=== PATIENT | female | born 1965 | race Caucasian/White ===

== ENCOUNTER → 2016-08-10 | Outpatient (CLI) | payer OTHER | END | disposition home or self-care (01) | LOC: C.LABMFLN 08:55 | PROVIDERS: ATTEND Family Medicine | DX: M81.0 Age-related osteoporosis without current pathological fracture (principal) ==

== ENCOUNTER → 2017-07-13 | Outpatient (CLI) | payer OTHER ==
[~2017-07-13] MED LIST: ALBUAER INH; ALEN70TA4 PO; ASPI81TA28 PO; ATOR-22 PO; CALCTAB5 PO; CLON0.5T3 PO; CYCL10TA6 PO; ERGO500037 PO; FLUT115A INH; HYDR-3419 PO; LISI10TA PO; METF500T5 PO; MULT-506 PO
[2017-07-13 18:03] LABS: BASO % 0.5 %; BASO ABS # 0.03 K/uL (0-0.2); COMPLETE YES; EOS % 0.5 %; HEMATOCRIT 37.4 % (37-47); LYMPH % 38.3 %; LYMPH ABS # 2.22 K/uL (1.2-3.4); MEAN CELL VOLUME 91.7 fL (80-100); MEAN CORPUSCULAR HEMOGLOBIN 30.1 pg (25-34); MEAN CORPUSCULAR HGB CONC 32.9 g/dl (32-36); MEAN PLATELET VOLUME 8.9 fL (7.4-10.4); MONO % 10.5 %; NEUT % 50.2 %; PLATELET COUNT 294 K/uL (130-400); RED BLOOD COUNT 4.08 M/uL (4.2-5.4); WHITE BLOOD COUNT 5.79 K/uL (4.8-10.8)
[2017-07-13 18:18] LABS: MANUAL MICROSCOPIC REQUIRED? NO; REVIEW REQ? NO; URINE APPEARANCE CLEAR (CLEAR); URINE BILIRUBIN NEG (NEG); URINE COLOR YELLOW; URINE EPITHELIAL CELL AUTO >30 /lpf (0-5); URINE NITRITE NEG (NEG); URINE PH 6.5 (4.5-7.5); UROBILINOGEN NEG (NEG)
== END | disposition home or self-care (01) ==
LOC: C.LABMFLN 14:11
PROVIDERS: ATTEND Orthopaedic Surgery Orthopaedic Surgery of the Spine
DX: M54.5 Low back pain (principal)

== ENCOUNTER 2017-08-18 08:52 | Inpatient (IN) | payer OTHER ==
--- NOTE | 2017-06-17 11:46 | PAT Medication Instructions ---
Service Date Jun 17, 2017. Current Home Medication List Albuterol Sulfate (Proventil Hfa), 2 PUFF INH QID Alendronate Sodium (Fosamax), 70 MG PO WK Aspirin (Aspirin Ec), 81 MG PO QAM Atorvastatin (Lipitor), 20 MG PO QAM Calcium Carbonate (Caltrate 600), 1 TAB PO QAM Clonazepam (Klonopin), 0.5 MG PO HS Cyclobenzaprine Hcl (Flexeril), 1 TAB PO HS PRN for Muscle Spasms Ergocalciferol (Vitamin D 11341 Unit), 50,000 UNIT PO 2xmonth Fluticasone-Salmeterol 115/21 Mcg (Advair Hfa 115/21 Mcg), 2 PUFF INH BID Hydrocodon/Acetaminophen 5MG/300MG (Vicodin (5MG/300MG)), 1 TAB PO Q4H PRN for Pain Lisinopril (Prinivil), 10 MG PO QAM Metformin Hcl Er (Glucophage Er), 500 MG PO QAM Multivitamin (Multivitamin), 1 TAB PO QAM Medication Instructions For Your Scheduled Surgery - Hold the following medications 48 hours prior to surgery: Metformin Hcl Er (Glucophage Er), 500 MG PO QAM - Hold the following medications the morning of surgery: Multivitamin (Multivitamin), 1 TAB PO QAM Lisinopril (Prinivil), 10 MG PO QAM Calcium Carbonate (Caltrate 600), 1 TAB PO QAM Ergocalciferol (Vitamin D 61978 Unit), 50,000 UNIT PO 2xmonth - Take the following medications the morning of surgery with a sip of water: Aspirin (Aspirin Ec), 81 MG PO QAM Fluticasone-Salmeterol 115/21 Mcg (Advair Hfa 115/21 Mcg), 2 PUFF INH BID Hydrocodon/Acetaminophen 5MG/300MG (Vicodin (5MG/300MG)), 1 TAB PO Q4H PRN for Pain (can take if needed, up to four hours before surgery) Atorvastatin (Lipitor), 20 MG PO QAM Alendronate Sodium (Fosamax), 70 MG PO WK Albuterol Sulfate (Proventil Hfa), 2 PUFF INH QID (if needed, and bring with you to the hospital) - Take the following medications as scheduled the night before surgery: Fluticasone-Salmeterol 115/21 Mcg (Advair Hfa 115/21 Mcg), 2 PUFF INH BID Clonazepam (Klonopin), 0.5 MG PO HS Cyclobenzaprine Hcl (Flexeril), 1 TAB PO HS PRN for Muscle Spasms Albuterol Sulfate (Proventil Hfa), 2 PUFF INH QID (if needed) Hydrocodon/Acetaminophen 5MG/300MG (Vicodin (5MG/300MG)), 1 TAB PO Q4H PRN for Pain (if needed) If you have any questions please call us at [phone] or [phone] or [phone]
[2017-06-17 12:46] LABS: BASO % 0.6 %; BASO ABS # 0.03 K/uL (0-0.2); EOS % 0.8 %; EOS ABS # 0.04 K/uL (0-0.5); HEMATOCRIT 42.2 % (37-47); HEMOGLOBIN 13.5 g/dL (12.0-16.0); IG# 0.01 K/uL (0.00-0.02); LYMPH % 36.3 %; LYMPH ABS # 1.86 K/uL (1.2-3.4); MEAN CELL VOLUME 90.6 fL (80-100); MEAN PLATELET VOLUME 8.6 fL (7.4-10.4); MONO % 7.8 %; NEUT % 54.3 %; NEUT ABS # 2.78 K/uL (1.4-6.5); PLATELET COUNT 382 K/uL (130-400); RED CELL DISTRIBUTION WIDTH CV 15.2 % (11.5-14.5); RED CELL DISTRIBUTION WIDTH SD 50.3 fL (36.4-46.3); WHITE BLOOD COUNT 5.12 K/uL (4.8-10.8)
[2017-06-17 12:55] LABS: CALCIUM 9.4 mg/dl (8.5-10.1); CREATININE 0.71 mg/dl (0.60-1.20); POTASSIUM 4.2 mmol/L (3.5-5.1)
[2017-08-18] VITALS (9 sets, daily range): BP systolic 91–129; BP diastolic 61–83; PULSE 73–105; TEMP 36.3–37.1; O2SAT 95–100; Ht 172.7 cm; Wt 59.9 kg
[~2017-08-18] VITALS: Ht 172.7 cm; Wt 59.9 kg
[~2017-08-18 08:52] MED LIST changes: +CEFAZOLIN 1000MG IV PUSH 5 ML IV SCH; +LACTATED RINGER'S 1000ML 1,000 ML IV SCH
[2017-08-18] MEDS ORDERED: MIDAZOLAM HCL 1 MG/ML 2ML VIAL ONE (10:22)
[2017-08-18] MEDS ORDERED: PROPOFOL IV EMULSION 10 MG/ML 20 ML VIAL IV ONE (10:22)
[2017-08-18] MEDS ORDERED: ONDANSETRON INJ 2 MG/ML 2 ML VIAL ONE (10:22)
[2017-08-18] MEDS ORDERED: LIDOCAINE HCL 2% 2 ML VIAL (20MG/ML) ONE (10:22)
[2017-08-18] MEDS ORDERED: DEXAMETHASONE SOD INJ 4 MG/ML VIAL ONE (10:22)
[2017-08-18] MEDS ORDERED: NEOSTIGMINE METHYLSULFATE 1 MG/ML 10ML VIAL ONE (10:22)
[2017-08-18] MEDS ORDERED: GLYCOPYRROLATE INJ 0.2 MG/ML VIAL ONE (10:22)
[2017-08-18] MEDS ORDERED: FENTANYL CITRATE INJ 50 MCG/1 ML 2 ML VIAL ONE ×2 (10:22)
--- NOTE | 2017-08-18 10:30 | History & Physical Bridge Note ---
H&P Re-Evaluation Bridge Note: I have examined the patient, reviewed the History & Physical and in the interval since the performance of the History & Physical I have noted the following changes of clinical significance: No changes noted
--- NOTE | 2017-08-18 10:31 | History and Physical ---
History & Physical Date Aug 18, 2017. Chief Complaint Back and leg pain History of Present Illness The patient is a 52 year old female with complaints of back and leg pain Additional History Hepatic Disease: No Endocrine Disorder: No Kidney Disease: No Hypertension: Yes Heart Disease: No Bleeding Tendencies: No Infectious Diseases: No Allergies Coded Allergies: Ketorolac (Verified Allergy, Unknown, throat swells and hives, 08/18/17) Home Medications Scheduled Albuterol Sulfate (Proventil Hfa), 2 PUFF INH QID Alendronate Sodium (Fosamax), 70 MG PO WK Aspirin (Aspirin Ec), 81 MG PO QAM Atorvastatin (Lipitor), 20 MG PO QAM Calcium Carbonate (Caltrate 600), 1 TAB PO QAM Clonazepam (Klonopin), 0.5 MG PO HS Ergocalciferol (Vitamin D 72458 Unit), 50,000 UNIT PO 2xmonth Fluticasone-Salmeterol 115/21 Mcg (Advair Hfa 115/21 Mcg), 2 PUFF INH BID Lisinopril (Prinivil), 5 MG PO QAM Metformin Hcl Er (Glucophage Er), 500 MG PO QAM Multivitamin (Multivitamin), 1 TAB PO QAM Scheduled PRN Cyclobenzaprine Hcl (Flexeril), 1 TAB PO HS PRN for Muscle Spasms Hydrocodon/Acetaminophen 5MG/300MG (Vicodin (5MG/300MG)), 1 TAB PO Q4H PRN for Pain Physical Examination Skin: warm/dry, no rash Eyes: normal inspection, EOMI, sclerae normal ENT: normal ENT inspection, pharynx normal Head: normocephalic, atraumatic Neck: supple, no adenopathy, trachea midline Respiratory/Chest: lungs clear, normal breath sounds, no respiratory distress Cardiovascular: regular rate, rhythm, no edema, no murmur Abdomen / GI: normal bowel sounds, non tender Back: normal inspection Extremities: normal inspection, normal range of motion Neurologic/Psych: no motor/sensory deficits, alert, normal reflexes, oriented x 3 Diagnosis Lumbar spinal stenosis Plan of Treatment Removal of hardware L5-S1 L4 5 decompression fusion possible L3 4
[2017-08-18] MEDS ORDERED: BUPIVACAINE/EPINEPHRINE 0.25% 1:200,000 30 ML VIAL ONE (10:44)
[2017-08-18] MEDS ORDERED: BACITRACIN 50000 UNIT VIAL ONE (10:44)
[2017-08-18] MEDS ORDERED: HYDROmorphone INJ 2 MG/ML SYR/VIAL ONE (11:31)
[2017-08-18] MEDS ORDERED: PHENYLEPHRINE 100MCG/ML 5ML SYR ONE (11:44)
[2017-08-18] MEDS ORDERED: ONDANSETRON INJ 2 MG/ML 2 ML VIAL IV PRN (12:00)
[2017-08-18] MEDS ORDERED: ATROPINE SULFATE 0.1 MG/ML 5ML SYR IV PRN (12:00)
[2017-08-18] MEDS ORDERED: EpHEDrine SULFATE INJ 50 MG/ML AMP IV PRN (12:00)
[2017-08-18] MEDS ORDERED: FLOSEAL HEMOSTATIC MATRIX 10ML TOP ONE (12:02)
[2017-08-18] MEDS ORDERED: SODIUM CHLORIDE 0.9% 1000ML 1,000 ML IV SCH (12:13)
--- NOTE | 2017-08-18 12:13 | [facility] Operative Report ---
Operative Report Operative Date Aug 18, 2017. Pre-Operative Diagnosis Lumbar Spinal Stenosis Post-Operative Diagnosis Lumbar Spinal Stenosis Procedure(s) Performed #1 removal of posterior instrumentation L5-S1. #2 expiration of fusion L5-S1. #3 lumbar decompression medial facetectomies foraminotomies L4 5. #4 posterior spinal fusion L4 5. #5 placement posterior instrumentation L4 5. #6 interbody fusion L4 5. #7 placement peek cage 12 x 22 mm L4 5. #8 placement of locally harvested morcellized autograft in the posterior lateral gutters. #9 placement infuse collagen sponge commode Master graft the posterior gutters and ostial amp in the interbody space. Surgeon Dr. Mitchell Weinberg Radiologic Technologist Surgeon(s) Allyssa Bee PA-C Estimated Blood Loss 70 ml Findings Severe spinal stenosis Specimens A: Explanted Hardware Description of Procedure Patient was met with preoperatively case discussed all questions addressed. After informed consent obtained patient was taken to the operative suite underwent intubation placed in a prone position on the Som table on top Jordy frame. All bony prominences were well-padded eyes inspected to ensure there is no external pressure placed upon them. This point the lumbar spine was prepped and draped in normal sterile fashion. Sharp dissection with the assistance of Bovie cautery was performed onto an exposing the lamina and transverse processes of L4 and instrumentation L5-S1 level. Then proceeded remove the hardware L5-S1 Fusion mass noting it to be intact. Then performed a complete laminectomy of L4 addressing severe lateral recessed foraminal disease particularly on the left. After this complete pedicle screws were placed in L4 and L5 bilaterally with assistance of fluoroscopy and the probably size lois placed. Through a trans-foraminal approach on the left complete discectomy was performed and plate created to subcortical bleeding bone and a 12 x 22 mm peek cage filled with ostial amp tapped in position. The rods were then compressed locked and final position bilaterally. The transverse processes of L4 and 5 burred to subcortical bleeding bone. Infuse collagen sponge mask graft locally harvested morcellized autograft was placed and posterior gutters. 15 round WILLIAM drain inserted. Incision was then closed with 1 Vicryl in the fascia 2-0 Vicryl subcutaneous cutaneously 4 Monocryl for final skin closure Steri-Strips sterile dressings placed. Patient we can take PACU stable condition. Please note Gladys Ruffin was present at the entire procedure involved in patient positioning complex portions of the surgery and final skin closure. I attest to the content of the Intraoperative Record and any orders documented therein. Any exceptions are noted below.
[2017-08-18] MEDS ORDERED: ALUMINUM/MAGNESIUM SUSP 30 ML UDC PO PRN (12:15)
[2017-08-18] MEDS ORDERED: DO NOT ADMINISTER FLU VACCINE PRN (12:15)
[2017-08-18] MEDS ORDERED: BISACODYL 10 MG SUPP PR PRN (12:15)
[2017-08-18] MEDS ORDERED: METOCLOPRAMIDE HCL INJ 5 MG/ML 2 ML VIAL IV PRN (12:15)
[2017-08-18] MEDS ORDERED: LORAZEPAM INJ 0.5 MG in SYRINGE 0 ML IV PRN (12:15)
[2017-08-18] MEDS ORDERED: PROMETHAZINE HCL INJ 12.5 MG in SODIUM CHLORIDE 0.9% 50ML 50 ML IV PRN (12:15)
[2017-08-18] MEDS ORDERED: NALOXONE HCL 0.4 MG/1 ML VIAL/CARP IV PRN ×2 (12:15)
[2017-08-18] MEDS ORDERED: hydrOXYzine HCL 25 MG TAB PO PRN (12:15)
[2017-08-18] MEDS ORDERED: FAMOTIDINE 20 MG TAB PO PRN (12:15)
[2017-08-18] MEDS ORDERED: CEFAZOLIN IV 1,000 MG in DEXTROSE 5% 50ML 50 ML IV SCH (12:15)
[2017-08-18] MEDS ORDERED: DO NOT ADMINISTER PNEUMOCOCCAL VACCINE PRN (12:15)
[2017-08-18] MEDS ORDERED: ACETAMINOPHEN IV 100 ML IV PRN (12:15)
[2017-08-18] MEDS ORDERED: MAGNESIUM HYDROXIDE SUSP 30 ML UDC PO PRN (12:15)
[2017-08-18] MEDS ORDERED: SOD PHOSPHATE/SOD BIPHOSPHATE ENEMA 132 ML BTL PR PRN (12:15)
[2017-08-18] MEDS ORDERED: CYCLOBENZAPRINE HCL 10 MG TAB PO PRN (12:15)
[2017-08-18] MEDS ORDERED: ACETAMINOPHEN 500 MG TAB PO PRN (12:15)
[2017-08-18] MEDS ORDERED: ROCURONIUM BROMIDE 10 MG/ML 5 ML VIAL IV ONE (12:16)
[2017-08-18] MEDS ORDERED: PHARMACY GLYCEMIC MGMT CONSULT PRN (12:24)
[2017-08-18] MEDS ORDERED: HYDROmorphone HCL 0.5MG/ML 50 ML CASSETTE ONE (12:32)
[2017-08-18] MEDS: FENTANYL CITRATE INJ 50 MCG/1 ML 2 ML VIAL IV PRN ×4 (12:35→12:50)
[2017-08-18] MEDS: MoRPHine SULFATE 10 MG/ML CARP/VIAL IV PRN ×5 (13:05→13:25)
[2017-08-18] MEDS ORDERED: NURSING VERBAL MED ORDER ONE ×3 (13:15→22:15)
--- NOTE | 2017-08-18 13:33 | Anesthesiology Progress Note ---
Anesthesia Post Op Note Date & Time Aug 18, 2017 at 13:33 Vital Signs Vital Signs Past 12 Hours Date Time Temp Pulse Resp B/P (MAP) Pulse Ox O2 Delivery O2 Flow Rate FiO2 08/18/17 13:20 94 18 102/69 99 Nasal Cannula 4 08/18/17 13:10 69 18 105/70 100 Nasal Cannula 4 08/18/17 13:00 74 18 105/69 100 Oxymask 10 08/18/17 12:50 64 18 90/60 100 Oxymask 10 08/18/17 12:40 87 18 119/80 100 Oxymask 10 08/18/17 12:31 36.2 76 18 122/66 100 Oxymask 10 08/18/17 09:20 36.6 88 18 129/83 99 Room Air Notes Mental Status: alert / awake / arousable, participated in evaluation Pt Amnestic to Procedure: Yes Nausea / Vomiting: adequately controlled Pain: adequately controlled Airway Patency, RR, SpO2: stable & adequate BP & HR: stable & adequate Hydration State: stable & adequate Anesthetic Complications: no major complications apparent
[2017-08-18] MEDS: HYDROmorphone HCL 0.5MG/ML 50 ML CASSETTE IV PRN ×3 (14:00→23:00)
--- NOTE | 2017-08-18 14:15 | Pharmacy Progress Note ---
Glycemic Control Intl Consult Date of Service Aug 18, 2017. Scope Glycemic Pharmacist consulted by Dr Weinberg on 08/18/17 for glycemic control and to write orders per [facility] inpatient glycemic control protocol Objective Weight (Kilograms): 59.90 Accuchecks BSG (last 24hrs): Test 08/18/17 12:46 Bedside Glucose 135 mg/dl (70-90) Recent Pertinent Medications Outpatient Anti-diabetic Regimen: * Metformin * A1c = 5.9 % 07/17/16 Risk Factors for Insulin Resistance: * Steroids * Recent Surgery Assessment & Plan ASSESSMENT: * 52 yo diabetic F s/p lumbar surgery, POD#0 * Most recent A1c from over a year ago indicative of good glycemic control - will order a current A1c * Pt received Dexamethasone 8 mg IV @1030 which should drive BSGs above goal range * To combat steroid-induced hyperglycemia, will initiate one time dose of Lantus in addition to wt based Novolog PLAN FOR INPATIENT GLYCEMIC CONTROL: * Hold outpatient oral diabetes medications * Basal insulin with LANTUS 20 units SQ X 1 with dinner * Correctional Insulin with NOVOLOG per scale ACHS + 0200 check tonight only for tight control immediately post-op * Goal Range: Low 110 mg/dL - High 140 mg/dL * Correction Factor: 25 mg/dL/unit * Nutritional / Prandial insulin per carb ratio of 1 unit per 9 grams CHO consumed * Please note that the plan above was derived based on current level of insulin resistance and hospital stress. These recommendations are appropriate for inpatient admission only. Plan of care upon discharge will need to be reassessed to avoid potential outpatient hypo/hyperglycemia. Thank you.
--- NOTE | 2017-08-18 14:19 | DIAGNOSTIC IMAGING REPORT ---
INTRAOPERATIVE LUMBAR SPINE 2 VIEWS CLINICAL HISTORY: L3-L5 DECOMPRESSION/FUSION COMPARISON STUDY: Outside conventional radiographic study dated 04/26/2017 FINDINGS: 12 seconds of fluoroscopic time was utilized. 2 intraoperative fluoroscopic spot images are provided for interpretation. There are postsurgical changes of a L5-S1 discectomy and interbody fusion. There are postsurgical changes of a L4-5 discectomy and interbody fusion with posterior pedicle screw fixation. IMPRESSION: Intraoperative radiographs as described above. Electronically signed by: Leodan De Guzman M.D. 08/18/2017 2:17 PM Dictated Date/Time: 08/18/2017 2:16 PM
[2017-08-18] MEDS ORDERED: RXC5 PO (14:31)
--- NOTE | 2017-08-18 14:32 | Discharge Instructions ---
Discharge Instructions Date of Service Aug 18, 2017. Admission Reason for Admission: Lumbar Spinal Stenosis Discharge Discharge Diagnosis / Problem: lumbar stenosis Discharge Goals Goal(s): Improve function Activity Recommendations Activity Limitations: per Instructions/Follow-up section . Instructions / Follow-Up Instructions / Follow-Up ACTIVITY RECOMMENDATIONS: SELF CARE INSTRUCTIONS AFTER THORACIC/LUMBAR FUSIONS 1. You may walk to your tolerance. It is good exercise for your legs and back. Expect some back and intermittent leg aches and pains. 2. You may perform "counter-top" level activities (make a sandwich, john with a project, etc.). 3. No bending or lifting of more than 10 pounds or back twisting of any nature (roll like a log when turning in bed). 4. You may ride in a car for 20-30 minutes at a time. No driving until after your first visit with your doctor. 5. Frequent changes of position and restricting sitting to 30 minutes at a time will help limit the amount of back spasms and stiffness you may experience. 6. You may discontinue the use of ambulatory aids (cane, crutches, etc.) once your strength and confidence allow. 7. You may supply coordinator the shower and let water strike your incision when you arrive home at least once daily. Do not take a tub bath, sit in a hot tub or go into a swimming pool until after your first recheck in the office. SPECIAL CARE INSTRUCTIONS: VERY IMPORTANT TO READ AND REVIEW A. Your surgical incision has been closed with a cosmetic suture under the skin that will dissolve in about 6 weeks. In 14 days, you can use a pair of clean scissors and cut the suture that is left outside of the skin at the ends of your incision. 1. The small skin tapes can be removed 7 days after surgery if they have not fallen off by that point. 2. You may keep the wound open to air as much as possible to promote healing after post-op day number 5 unless told otherwise by your doctor. 3. If you think the wound looks like it is becoming infected (redness or worsening drainage) and/or you are experiencing fever, chill or worsening back pain and muscle spasms, contact the office so that we may evaluate you as soon as possible. B. Complications are uncommon, but please contact us if you have any signs or symptoms of: 1. wound infection (fever higher than 102.5 degrees F, redness, separation of wound, drainage, or increasing pain from the incision) 2. blood clots in legs (pain, swelling, redness and warmth in legs) 3. urinary tract infection (fever higher than 102.5 degrees F, burning upon urination or increased frequency of urination) 4. nerve problems (inability to walk on your toes or heels, numbness, loss of bowel or bladder control) 5. any other symptoms that concern you C. Please call the office at if you have any concerns or questions about your operation or recovery. D. No smoking! Smoking drastically decreases the chance of a solid fusion. E. Do not take any anti-inflammatory medications (Indocin, Advil, Motrin, Aspirin, Naprosyn, etc.) as these may inhibit the chance of a solid fusion. Tylenol is okay to take for pain. MANAGING PAIN AFTER SPINAL SURGERY 1. Narcotic medication is intended for short-term use and will be provided for surgical pain. Surgical pain usually lasts for a period of 4-6 weeks. Narcotic medication includes Percocet, Vicodin, Darvocet, Tylenol #3 or Lortab. 2. Longer-term pain is more appropriately treated with non-narcotic medication such as Tylenol ES. 3. Muscle spasm is not appropriately treated with narcotics. Muscle relaxers such as Soma, Flexeril or Skelaxin can be used along with Tylenol ES. 4. Remember that we all live with some "aches and pains". This is not unusual or uncommon after an injury or as we get older. a. Back pain is expected and may include muscle spasms for 4 to 6 weeks after surgery. The pain should gradually improve. If the pain worsens for no apparent reason, please contact the office. b. Intermittent leg pain may also be experienced and should not be concerned about unless it worsens for no apparent reason. If so, please contact the office. 5. We will provide appropriate medication within the normal guidelines of their prescribed use. We will also be very cautious and aware of potential abuse and extended duration of patients' medication needs. a. Pain medications are for your comfort and to assist with sleep and rest so that the tissue can heal. They are not provided in order to return to normal activity and should not be used through the day. To do so or worsening pain at night can result from ongoing tissue damage and development of tolerance to the prescribed medicine. 6. Please allow 2-3 days to process refills. Prescriptions will not be mailed but must be picked up at the office. FOLLOW UP VISIT: Keep your scheduled follow-up appointment. Any questions, please call the office at . Current Hospital Diet Patient's current hospital diet: Regular Diet Discharge Diet Recommended Diet: Regular Diet Procedures Procedures Performed: #1 removal of posterior instrumentation L5-S1. #2 expiration of fusion L5-S1. #3 lumbar decompression medial facetectomies foraminotomies L4 5. #4 posterior spinal fusion L4 5. #5 placement posterior instrumentation L4 5. #6 interbody fusion L4 5. #7 placement peek cage 12 x 22 mm L4 5. #8 placement of locally harvested morcellized autograft in the posterior lateral gutters. #9 placement infuse collagen sponge commode Master graft the posterior gutters and ostial amp in the interbody space. Pending Studies Studies pending at discharge: no Medical Emergencies . Who to Call and When: Medical Emergencies: If at any time you feel your situation is an emergency, please call 911 immediately. . Non-Emergent Contact Non-Emergency issues call your: Primary Care Provider . "Provider Documentation" section prepared by Abraham Weinberg. . VTE Core Measure Inpt VTE Proph given/why not?: Yonas Cast, SCD's
[2017-08-18] MEDS ORDERED: GLUCOSE 10 TABS/TUBE PO PRN (14:45)
[2017-08-18] MEDS ORDERED: GLUCOSE 40% GEL 15 GM TUBE PO PRN (14:45)
[2017-08-18] MEDS ORDERED: GLUCAGON FOR INJ 1 MG VIAL SQ PRN (14:45)
[2017-08-18] MEDS ORDERED: DEXTROSE 50% 50 ML SYR IV PRN (14:45)
[2017-08-18] MEDS: ALBUTEROL HFA 8 GM INHALER INH SCH ×3 (15:48→20:34)
[2017-08-18] MEDS: NICOTINE 21 MG/24 HR TDSY EXT SCH (15:48)
[2017-08-18] MEDS: SODIUM CHLORIDE 0.9% 1000ML 1,000 ML IV SCH ×2 (16:57→23:57)
[2017-08-18] MEDS ORDERED: LANTUS PER UNIT CHARGE SQ SCH ×2 (17:45)
[2017-08-18] MEDS: INSULIN ASPART 100 UNITS/ML 3 ML PEN SC SCH ×2 (18:46→22:02)
[2017-08-18] MEDS: CEFAZOLIN IV 1,000 MG in SYRINGE 0 ML IV SCH (18:47)
[2017-08-18] MEDS: ONDANSETRON INJ 2 MG/ML 2 ML VIAL IV PRN (18:54)
[2017-08-18] MEDS: DOCUSATE SODIUM/SENNA 50/8.6MG TAB PO SCH (20:34)
[2017-08-18] MEDS: CLONAZEPAM 0.5 MG TAB PO SCH (20:34)
[2017-08-19] VITALS (8 sets, daily range): BP systolic 99–119; BP diastolic 60–79; PULSE 91–115; TEMP 36.9–37.5; O2SAT 91–100
[2017-08-19] MEDS ORDERED: INSULIN ASPART 100 UNITS/ML 3 ML PEN SC SCH (02:00)
[2017-08-19] MEDS: CEFAZOLIN IV 1,000 MG in SYRINGE 0 ML IV SCH (03:31)
[2017-08-19] MEDS: LORAZEPAM 0.5 MG TAB PO PRN ×2 (03:39→16:14)
[2017-08-19] MEDS ORDERED: DC PCA ONE (06:00)
[2017-08-19] MEDS: OXYCODONE HCL IR 5 MG TAB (IMMEDIATE RELEASE) PO PRN ×5 (06:14→21:54)
[2017-08-19] MEDS: ONDANSETRON INJ 2 MG/ML 2 ML VIAL IV PRN ×2 (06:18→17:25)
[2017-08-19] MEDS ORDERED: NURSING VERBAL MED ORDER ONE ×2 (06:45→14:30)
[2017-08-19 08:28] LABS: BASO % 0.1 %; BASO ABS # 0.01 K/uL (0-0.2); EOS % 0.1 %; EOS ABS # 0.01 K/uL (0-0.5); HEMATOCRIT 35.3 % (37-47); HEMOGLOBIN 11.7 g/dL (12.0-16.0); IG# 0.08 K/uL (0.00-0.02); LYMPH ABS # 2.11 K/uL (1.2-3.4); MEAN CELL VOLUME 93.6 fL (80-100); MEAN CORPUSCULAR HGB CONC 33.1 g/dl (32-36); MEAN PLATELET VOLUME 8.9 fL (7.4-10.4); MONO % 10.6 %; MONO ABS # 1.86 K/uL (0.11-0.59); NEUT % 76.7 %; NEUT ABS # 13.49 K/uL (1.4-6.5); PLATELET COUNT 257 K/uL (130-400); RED CELL DISTRIBUTION WIDTH SD 48.1 fL (36.4-46.3); WHITE BLOOD COUNT 17.56 K/uL (4.8-10.8)
--- NOTE | 2017-08-19 08:36 | Pharmacy Progress Note ---
Pharmacy Glycemic Short Note 2 Date of Service Aug 19, 2017. OUTPATIENT ANTIDIABETIC REGIMEN: * metformin per med rec (pt states she is no longer taking this) ASSESSMENT: * 52 yo F s/p lumbar surgery, POD#1 * Pt given basal bolus regimen yesterday to combat steroid-induced hyperglycemia * BSGs looked great through the evening and have trended down to Fasting this AM of 89 * Loosen coverage and remove carb ratio this afternoon PLAN FOR INPATIENT GLYCEMIC CONTROL: * Bolus insulin * NovoLog per scale ACHS or Q6hrs while NPO * Goal Range: Low 110 mg/dL - High 140 mg/dL * Correction Factor: 40 mg/dL/unit * Nutritional / Prandial insulin per carb ratio of 1 unit per 15 grams CHO consumed PLAN FOR DISCHARGE: * Pt is not taking metformin - A1c = 5.9% - continue lifestyle modifications
[2017-08-19] MEDS: ASPIRIN 81 MG ECTAB PO SCH (08:45)
[2017-08-19] MEDS: ALBUTEROL HFA 8 GM INHALER INH SCH ×4 (08:45→20:03)
[2017-08-19] MEDS: ATORVASTATIN 20 MG TAB PO SCH (08:46)
[2017-08-19] MEDS: LISINOPRIL 5 MG TAB PO SCH (08:46)
--- NOTE | 2017-08-19 08:46 | Progress Note ---
Progress Note Date of Service Aug 19, 2017. Progress Note Patient is postop day #1. Left leg symptoms markedly improved. Back pain controlled. Exam she is good strength testing. She appears comfortable. Assessment status post lumbar decompression fusion. Planned this time we'll initiate physical therapy advance her bowel regiment consider discharge home Wednesday or Wednesday.
[2017-08-19] MEDS: NICOTINE 21 MG/24 HR TDSY EXT SCH (08:47)
[2017-08-19 08:52] LABS: CALCIUM 8.9 mg/dl (8.5-10.1); CREATININE 0.65 mg/dl (0.60-1.20)
[2017-08-19] MEDS: INSULIN ASPART 100 UNITS/ML 3 ML PEN SC SCH ×4 (08:53→21:00)
[2017-08-19 08:54] LABS: HEMOGLOBIN A1C 5.9 % (4.5-5.6)
[2017-08-19] MEDS: HYDROmorphone INJ 1 MG/ML SYR IV PRN ×4 (08:58→18:35)
[2017-08-19] MEDS: CYCLOBENZAPRINE HCL 10 MG TAB PO PRN (15:26)
[2017-08-19] MEDS: CLONAZEPAM 0.5 MG TAB PO SCH (20:03)
[2017-08-19] MEDS: DOCUSATE SODIUM/SENNA 50/8.6MG TAB PO SCH (20:03)
[2017-08-19] MEDS ORDERED: ALUMINUM/MAGNESIUM SUSP 30 ML UDC PO STA (21:48)
--- NOTE | 2017-08-19 22:18 | Medical Consult ---
Consultation Date of Consultation: Aug 19, 2017. Attending Physician: Abraham Weinberg D.O. History of Present Illness This is a 52 year old F s/p back surgery. Internal medicine hospitalist consult called when nurse reported that patient was having substernal chest pain. Patient was evaluated by hospitalist at bedside around 9:40 PM. She reports that she was drinking a soda earlier and describes the chest discomfort feeling gassy but the discomfort was left sided and radiated to the back. Patient had reported that the sensation has resolved. An EKG was performed showing normal sinus rhythm around 96 beats per minutes. There did not appear to be morphologies of ST elevation. Patient also had troponin ordered. Have also ordered troponin to be drawn with morning labs. Patient's nurse was instructed to give Maalox and to notify hospitalist if patient has further symptoms. Social History Smoking Status: Current Every Day Smoker Allergies Coded Allergies: Ketorolac (Verified Allergy, Unknown, throat swells and hives, 08/18/17) Current Inpatient Medications Current Inpatient Medications Medications (Trade) Dose Ordered Sig/Isak Route Start Time Stop Time Status Last Admin Dose Admin Promethazine HCl 12.5 mg/Sodium Chloride 50.5 ml @ 202 mls/hr Q6H PRN IV 08/18/17 12:15 09/17/17 12:14 Ondansetron HCl (Zofran Inj) 4 mg Q6H PRN IV 08/18/17 12:15 09/17/17 12:14 08/19/17 17:25 4 MG Metoclopramide HCl (Reglan Inj) 10 mg Q6H PRN IV 08/18/17 12:15 09/17/17 12:14 Lorazepam (Ativan Tab) 0.5 mg Q8H PRN PO 08/18/17 12:15 09/17/17 12:14 08/19/17 16:14 0.5 MG Lorazepam 0.5 mg/ Syringe 0.25 ml @ 1 mls/min Q8H PRN IV 08/18/17 12:15 09/17/17 12:14 Pneumococcal Polysaccharide Vaccine 1 ea PRN PRN N/A 08/18/17 12:15 09/17/17 12:14 Influenza Virus Vacc Triv Types A&B 1 ea PRN PRN N/A 08/18/17 12:15 09/17/17 12:14 Polyethylene (Miralax Powder Packet) 17 gm Q6 PO 08/20/17 06:00 09/19/17 05:59 Bisacodyl (Dulcolax Supp) 10 mg DAILY PRN [place] 08/18/17 12:15 09/17/17 12:14 Magnesium Hydroxide (Milk Of Magnesia Susp) 30 ml DAILY PRN PO 08/18/17 12:15 09/17/17 12:14 Hydromorphone HCl (Dilaudid Inj) 0.5-1mg prn moder... Q3H PRN IV 08/19/17 06:00 09/02/17 05:59 08/19/17 18:35 1 MG Oxycodone HCl (Roxicodone Immediate Rel Tab) 5-10mg prn moderate to sev... Q4H PRN PO 08/19/17 06:00 09/02/17 05:59 08/19/17 21:54 10 MG Acetaminophen (Tylenol Tab) 1,000 mg Q8H PRN PO 08/18/17 12:15 09/17/17 12:14 Acetaminophen 100 ml @ 400 mls/hr Q8H PRN IV 08/18/17 12:15 09/17/17 12:14 Naloxone HCl (Narcan Inj) 0.1 mg Q5M PRN IV 08/18/17 12:15 09/17/17 12:14 Senna/Docusate Sodium (Senokot S Tab) 2 tab HS PO 08/18/17 21:00 09/17/17 20:59 08/19/17 20:03 2 TAB Sodium Biphosphate/ Sodium Phosphate (Fleet Enema) 132 ml ONE PRN [place] 08/18/17 12:15 09/17/17 12:14 Hydroxyzine HCl (Vistaril Tab) 25 mg Q8H PRN PO 08/18/17 12:15 09/17/17 12:14 Al Hydroxide/Mg Hydroxide (Maalox Susp) 30 ml Q6H PRN PO 08/18/17 12:15 09/17/17 12:14 Famotidine (Pepcid Tab) 20 mg Q12 PRN PO 08/18/17 12:15 09/17/17 12:14 Diphenhydramine HCl (Benadryl Cap) 25 mg Q6H PRN PO 08/18/17 12:15 09/17/17 12:14 Albuterol (Ventolin Hfa Inhaler) 1 puffs QID INH 08/18/17 13:00 09/17/17 12:59 08/19/17 20:03 1 PUFFS Aspirin (Ecotrin Tab) 81 mg QAM PO 08/19/17 09:00 09/18/17 08:59 08/19/17 08:45 81 MG Atorvastatin Calcium (Lipitor Tab) 20 mg QAM PO 08/19/17 09:00 09/18/17 08:59 08/19/17 08:46 20 MG Clonazepam (Klonopin Tab) 0.5 mg HS PO 08/18/17 21:00 09/17/17 20:59 08/19/17 20:03 0.5 MG Lisinopril (Zestril Tab) 5 mg QAM PO 08/19/17 09:00 09/18/17 08:59 08/19/17 08:46 5 MG Miscellaneous Information (Consult Glycemic Management Pharmacy) 1 ea UD PRN N/A 08/18/17 12:24 09/17/17 12:23 Insulin Aspart (novoLOG ASPART) SLIDING SCALE G... ACHS SC 08/18/17 17:15 09/17/17 17:14 08/19/17 08:53 2 UNITS Glucose (Glucose 40% Gel) 15-30 GRAMS 15 GRAMS... UD PRN PO 08/18/17 14:45 09/17/17 14:44 Glucose (Glucose Chew Tab) 4-8 Tablets 4 Tabl... UD PRN PO 08/18/17 14:45 09/17/17 14:44 Dextrose (Dextrose 50% 50ML Syringe) 25-50ML OF 50% DW IV FOR... UD PRN IV 08/18/17 14:45 09/17/17 14:44 Glucagon (Glucagon Inj) 1 mg UD PRN SQ 08/18/17 14:45 09/17/17 14:44 Nicotine (Nicoderm Cq 21MG Patch) 1 patch QAM EXT 08/18/17 16:00 09/17/17 15:59 08/19/17 08:47 1 PATCH Miscellaneous (Remove Nicoderm Patch) 1 ea QAM N/A 08/19/17 09:00 09/18/17 08:59 08/19/17 08:47 1 EA Cyclobenzaprine HCl (Flexeril Tab) 10 mg Q8H PRN PO 08/19/17 14:45 09/18/17 14:44 08/19/17 15:26 10 MG Review of Systems Constitutional: No fever Eyes: No eye pain ENT: No nasal symptoms Respiratory: No cough, No wheezing, No shortness of breath Cardiovascular: + problem reported (chest discomfort like feeling gassy that was left sided chest and radiated to the back) Abdomen: No pain, No nausea, No vomiting Musculoskeletal: No swelling, No calf pain Genitourinary - Female: No dysuria Neurologic: No paralysis, No numbness/tingling Psychiatric: No substance abuse Endocrine: No fatigue Hematologic / Lymphatic: No abnormal bleeding/bruising Physical Exam Date Time Temp Pulse Resp B/P (MAP) Pulse Ox O2 Delivery O2 Flow Rate FiO2 08/19/17 21:14 37.3 94 18 119/75 (90) 100 Room Air 08/19/17 20:01 104 96 Room Air 08/19/17 16:00 Room Air 08/19/17 15:35 104 100 Room Air 08/19/17 15:04 36.9 115 16 115/68 (84) 95 Room Air 08/19/17 13:55 37.0 99 16 117/79 (92) 100 Room Air 08/19/17 07:30 Room Air 08/19/17 06:58 37.5 91 16 107/67 (80) 96 Room Air 08/19/17 03:45 37.5 94 17 99/60 (73) 98 Room Air 08/19/17 00:00 Room Air 08/18/17 22:54 37.1 95 17 101/61 (74) 99 Room Air General Appearance: no apparent distress Head: normocephalic, atraumatic Eyes: normal inspection, EOMI, sclerae normal ENT: normal ENT inspection, hearing grossly normal, pharynx normal Neck: supple, no JVD, trachea midline Respiratory/Chest: chest non-tender, lungs clear, normal breath sounds, no respiratory distress, no accessory muscle use Cardiovascular: regular rate, rhythm, no edema, no JVD, no murmur Abdomen/GI: normal bowel sounds, non tender, soft Back: + pertinent finding (patient has dressing over lower back, patient could not sit up but able to turn to the side for exam) Extremities/Musculoskelatal: normal inspection, no calf tenderness, no pedal edema, non-tender Neurologic/Psych: alert, normal mood/affect, oriented x 3 Skin: normal color, warm/dry, no rash Laboratory Results Last 24 Hours Test 08/19/17 01:58 08/19/17 07:27 08/19/17 08:12 08/19/17 12:02 Bedside Glucose 130 mg/dl 98 mg/dl 109 mg/dl White Blood Count 17.56 K/uL Red Blood Count 3.77 M/uL Hemoglobin 11.7 g/dL Hematocrit 35.3 % Mean Corpuscular Volume 93.6 fL Mean Corpuscular Hemoglobin 31.0 pg Mean Corpuscular Hemoglobin Concent 33.1 g/dl Platelet Count 257 K/uL Mean Platelet Volume 8.9 fL Neutrophils (%) (Auto) 76.7 % Lymphocytes (%) (Auto) 12.0 % Monocytes (%) (Auto) 10.6 % Eosinophils (%) (Auto) 0.1 % Basophils (%) (Auto) 0.1 % Neutrophils # (Auto) 13.49 K/uL Lymphocytes # (Auto) 2.11 K/uL Monocytes # (Auto) 1.86 K/uL Eosinophils # (Auto) 0.01 K/uL Basophils # (Auto) 0.01 K/uL RDW Standard Deviation 48.1 fL RDW Coefficient of Variation 14.0 % Immature Granulocyte % (Auto) 0.5 % Immature Granulocyte # (Auto) 0.08 K/uL Sodium Level 140 mmol/L Potassium Level 4.0 mmol/L Chloride Level 105 mmol/L Carbon Dioxide Level 26 mmol/L Anion Gap 8.0 mmol/L Blood Urea Nitrogen 6 mg/dl Creatinine 0.65 mg/dl Est Creatinine Clear Calc Drug Dose 94.6 ml/min Estimated GFR () 117.5 Estimated GFR (Non- 101.4 BUN/Creatinine Ratio 9.8 Random Glucose 119 mg/dl Estimated Average Glucose 123 mg/dl Hemoglobin A1c 5.9 % Calcium Level 8.9 mg/dl Test 08/19/17 17:11 08/19/17 20:52 08/19/17 21:34 Bedside Glucose 114 mg/dl 117 mg/dl Assessment & Plan This is a 52 year old F s/p back surgery. Internal medicine hospitalist consult called when nurse reported that patient was having substernal chest pain. Patient was evaluated by hospitalist at bedside around 9:40 PM. She reports that she was drinking a soda earlier and describes the chest discomfort feeling gassy but the discomfort was left sided and radiated to the back. Patient had reported that the sensation has resolved. An EKG was performed showing normal sinus rhythm around 96 beats per minutes. There did not appear to be morphologies of ST elevation. Patient also had troponin ordered. Have also ordered troponin to be drawn with morning labs. Patient's nurse was instructed to give Maalox and to notify hospitalist if patient has further symptoms. [facility] Hospitalist will continue to follow the patient The attending physician on 08/20/[address] Mcgee Other health issues Other Cardiovascular: on aspirin and lisinopril no respiratory distress, on albuterol Current smoker DM with HbA1c less than 6, on metformin at home, currently on insulin in the hospital DVT ppx: SCDs
[2017-08-20] MEDS: OXYCODONE HCL IR 5 MG TAB (IMMEDIATE RELEASE) PO PRN ×2 (02:03→07:22)
[2017-08-20] MEDS: HYDROmorphone INJ 1 MG/ML SYR IV PRN ×2 (04:24→09:25)
[2017-08-20] MEDS ORDERED: POLYETHYLENE (MIRALAX) 17 GM PACK PO SCH (06:00)
[2017-08-20 06:20] LABS: BASO % 0.2 %; BASO ABS # 0.02 K/uL (0-0.2); EOS % 0.3 %; EOS ABS # 0.03 K/uL (0-0.5); HEMOGLOBIN 11.7 g/dL (12.0-16.0); IG# 0.02 K/uL (0.00-0.02); LYMPH % 24.4 %; LYMPH ABS # 2.38 K/uL (1.2-3.4); MEAN CELL VOLUME 92.8 fL (80-100); MEAN CORPUSCULAR HGB CONC 33.4 g/dl (32-36); MEAN PLATELET VOLUME 8.7 fL (7.4-10.4); MONO % 15.8 %; MONO ABS # 1.54 K/uL (0.11-0.59); NEUT % 59.1 %; NEUT ABS # 5.75 K/uL (1.4-6.5); PLATELET COUNT 230 K/uL (130-400); RED CELL DISTRIBUTION WIDTH CV 14.3 % (11.5-14.5); RED CELL DISTRIBUTION WIDTH SD 48.5 fL (36.4-46.3); WHITE BLOOD COUNT 9.74 K/uL (4.8-10.8)
[2017-08-20 06:30] VITALS: BP 95/60; PULSE 97; TEMP 37.1; O2SAT 94
[2017-08-20] MEDS ORDERED: NURSING DECISION MEDICATION ORDER SCH (06:30)
[2017-08-20] MEDS: CYCLOBENZAPRINE HCL 10 MG TAB PO PRN (06:31)
[2017-08-20 06:50] LABS: ALBUMIN 2.9 gm/dl (3.4-5.0); ALT/SGPT 16 U/L (12-78); BLOOD UREA NITROGEN 5 mg/dl (7-18); CALCIUM 8.5 mg/dl (8.5-10.1); CARBON DIOXIDE 27 mmol/L (21-32); CREATININE 0.61 mg/dl (0.60-1.20); GLUCOSE 115 mg/dl (70-99); POTASSIUM 3.7 mmol/L (3.5-5.1); SODIUM 137 mmol/L (136-145)
[2017-08-20 06:55] LABS: ALKALINE PHOSPHATASE 61 U/L (45-117); AST/SGOT 21 U/L (15-37); TOTAL PROTEIN 6.4 gm/dl (6.4-8.2)
[2017-08-20] MEDS: INSULIN ASPART 100 UNITS/ML 3 ML PEN SC SCH (07:23)
[2017-08-20] MEDS: NICOTINE 21 MG/24 HR TDSY EXT SCH (07:46)
[2017-08-20] MEDS: ALBUTEROL HFA 8 GM INHALER INH SCH (07:47)
[2017-08-20] MEDS: ATORVASTATIN 20 MG TAB PO SCH (07:48)
[2017-08-20] MEDS: ASPIRIN 81 MG ECTAB PO SCH (07:48)
[2017-08-20] MEDS: LISINOPRIL 5 MG TAB PO SCH (07:48)
[2017-08-20] MEDS ORDERED: NICO21DI4 EXT (09:13)
[2017-08-20 09:42] VITALS: BP 95/60; PULSE 97; TEMP 37.1; O2SAT 94
--- NOTE | 2017-08-20 12:11 | Discharge Summary ---
Orthopedic Discharge Summary Admission Date/Reason Aug 18, 2017 at 10:30 Lumbar Spinal Stenosis. Discharge Date/Disposition Aug 20, 2017 Home Diagnosis Principal Diagnosis: Lumbar spinal stenosis Admission Physical Exam As per Admitting History & Physical. Hospital Course Patient 1 lumbar decompression fusion tolerated as well as taken to the orthopedic floor postop we. Postoperative day #1 she was up and ambulatory she progressed to postoperative day #2. WILLIAM drain decreased properly. This was subsequently discharged home. Discharge orders and instructions found the chart for further review. Discharge Instructions Please refer to the electronic Patient Visit Report (Discharge Instructions) for additional information.
== END 2017-08-20 10:45 | disposition home or self-care (01) | DRG 455 ==
LOC: C.ACU 08:52 → C.3E 10:30 → ENRESERV 12:57
PROVIDERS: ADMIT Orthopaedic Surgery Orthopaedic Surgery of the Spine; ATTEND Orthopaedic Surgery Orthopaedic Surgery of the Spine
PROC: 0QP00JZ Removal of Synthetic Substitute from Lumbar Vertebra, Open Approach (ICD-10-PCS; principal; 2017-08-18 11:15)
PROC: 0SG00AJ Fusion of Lumbar Vertebral Joint with Interbody Fusion Device, Posterior Approach, Anterior Column, Open Approach (ICD-10-PCS; principal; 2017-08-18 11:15)
PROC: 0SG0071 Fusion of Lumbar Vertebral Joint with Autologous Tissue Substitute, Posterior Approach, Posterior Column, Open Approach (ICD-10-PCS; principal; 2017-08-18 11:15)
DX: M48.061 Spinal stenosis, lumbar region without neurogenic claudication (principal); I10 Essential (primary) hypertension; R07.9 Chest pain, unspecified; F17.200 Nicotine dependence, unspecified, uncomplicated; E11.9 Type 2 diabetes mellitus without complications; Z79.84 Long term (current) use of oral hypoglycemic drugs; Z79.82 Long term (current) use of aspirin

== ENCOUNTER 2020-01-08 05:39 | Inpatient (IN) ==
--- NOTE | 2020-01-03 14:47 | Anesthesiology Consultation ---
Date of Service January 03, 2020 Assessment & Plan (1) Encounter for pre-operative examination: Chart Review Chart Review: Acceptable Risk for Surgery and Patient NOT seen in Pre Admission Testing Per nursing assessment 01/03/2020, patient resides in [facility]. No known contact with PUIs or Covid positive people. No current Covid related symptoms. Patient's did have COVID testing on 12/20/2019 secondary to coughing and sneezingCOVID test negative per patient. Seen by PCP 12/18/19= " okay for surgery as long as preop testing is within acceptable limits." Hardware Removal L5-S1, decompression/fusion L4-5 on 08/18/17= Done under GA- Grade 1 view with MAC #3 with ETT #7.0. No noted anesthesia issues History Surgery Operation Date: 01/08/20 12:35 Proposed Procedures p C5-C7 Anterior Cervical Discectomy and Fusion, Spinal Cord Monitoring - Abraham Weinberg, Height/Weight Height: 5 ft 8 in Weight: 72.121 kg Allergies Allergy/AdvReac Type Severity Reaction Status Date / Time ketorolac Allergy Severe throat Verified 01/03/20 13:54 swells and hives Medications Home Medications Medication Instructions Recorded Confirmed Last Taken albuterol sulfate 2 puff INHALATION QID PRN 11/02/19 01/03/20 Unknown aspirin [Aspir-81] 81 mg PO QAM 11/02/19 01/03/20 Unknown atorvastatin [Lipitor] 20 mg PO QAM 11/02/19 01/03/20 Unknown buspirone 20 mg PO BID 11/02/19 01/03/20 Unknown calcium carbonate-vitamin D3 1 tab PO QAM 11/02/19 01/03/20 Unknown [Caltrate 600 plus D] fluticasone propion-salmeterol 2 puff INHALATION BID 11/02/19 01/03/20 Unknown [Advair HFA] hydrocodone-acetaminophen 1 tab PO Q4H PRN 11/02/19 01/03/20 Unknown lisinopril 5 mg PO QAM 11/02/19 01/03/20 Unknown methocarbamol 500 mg PO BID 11/02/19 01/03/20 Unknown multivitamin 1 tab PO QAM 11/02/19 01/03/20 Unknown omeprazole magnesium [Prilosec OTC] 20 mg PO QAM 11/02/19 01/03/20 Unknown oxycodone 5 - 10 mg PO Q4H PRN 11/02/19 01/03/20 Unknown Past Medical History Medical History Age related osteoporosis Anxiety Chronic neck and back pain Chronic obstructive pulmonary disease Advair BID and albuterol ~ once/week Degenerative disc disease Diabetes mellitus, type 2 diet controlled GERD (gastroesophageal reflux disease) Hyperlipidemia Hypertension Osteoarthritis Rheumatoid arthritis Not on any medications, states was confirmed with bloodwork. Scoliosis Past Family History Family History Brother Family history of esophageal cancer Past Surgical History Surgical History Fusion of spine lumbar x 2 History of arthroscopy Left knee scope x 6 History of bilateral tubal ligation History of colonoscopy S/P excision of neuroma left foot Social History Smoking Status: Current every day smoker tobacco type: cigarettes Smoking cigarettes per day: 1/2 ppd Do You Dip or Chew Tobacco: No Hx Alcohol Use: Yes Alcohol type: other alcohol intake frequency: holidays/special occasions only Alcohol Intake Frequency Comment: mixed drink Hx Substance Use: Yes (smokes marijuana daily) substance use type: marijuana Last Used Substance: Days (ago) Last Used Substance Other:: 01/02/20 Testing Laboratory Results 12/20/19= WBC: 5.74 H/H: 13.3/41.5 PLATELETS: 405 SODIUM: 145 POTASSIUM: 3.8 CHLORIDE: 105 CO2: 25 BUN: 4 CREATININE: 0.8 GLUCOSE: 87 HGB A1C: 5.9 Electrocardiogram Date: 08/17/19 Findings: + NSR @ (84bpm) Nonspecific T wave abnormality. Compared with EKG from 02/24/19, no significant change was found. Chest X-Ray Date: 08/17/19 Findings: + NAD Stress Test Date: 06/28/17 Type: DSE Resting EF: 67% Resting LV Function: normal Resting RWMA: + none Valvular Disease: no significant valvular disease (Mild TR) DSE negative for inducible ischemia at the achieved 92% maximal target heart rate. DSE EKG equivocal at the achieved HR. 1mm horizontal and plopping ST segment depression in II, III, aVF, V3-V6. Frequent PVCs with stress. Normal HR and BP response to dobutamine infusion. Per cardiology 07/2017: "The EKG portion did show some ST segment depression during stress however, I believe that her baseline EKG shows some left ventricular hypertrophy creating a false positive EKG stress due to LVH. She has had no symptoms that would suggest underlying heart disease such as activity related chest pain, progressive shortness of breath, heart palpitations, dizziness or lightheadedness." Cardio approved patient at that time for spine surgery
[~2020-01-08 05:39] MED LIST changes: -ALBUAER INH; -ALEN70TA4 PO; -ASPI81TA28 PO; -ATOR-22 PO; -CALCTAB5 PO; -CEFAZOLIN 1000MG IV PUSH 5 ML IV SCH; -CLON0.5T3 PO; -CYCL10TA6 PO; -ERGO500037 PO; -FLUT115A INH; -HYDR-3419 PO; -LACTATED RINGER'S 1000ML 1,000 ML IV SCH; -LISI10TA PO; -METF500T5 PO; -MULT-506 PO; +SODIUM CHLORIDE 0.9% 250 ML IV PRN
[2020-01-08] MEDS ORDERED: GABAPENTIN 600 MG DOSE PO SCH (06:00)
[2020-01-08] MEDS ORDERED: CEFAZOLIN 1000MG 1,000 MG/7.5 ML SYR IV SCH (06:00)
[2020-01-08] MEDS ORDERED: CeleBREX 200 MG CAP PO SCH (06:00)
[2020-01-08] MEDS ORDERED: ACETAMINOPHEN 500 MG TAB PO SCH (06:00)
[2020-01-08] MEDS ORDERED: LR 15ML/HR IV SCH (06:00)
[2020-01-08 06:35] LABS: INR 0.9 (0.9-1.1); Partial Thromboplastin Time 27.4 Seconds (21.0-31.0); Prothrombin Time 9.8 Seconds (9.0-12.0)
[2020-01-08 06:41] LABS: Appearance Urine Clear (Clear); Bacteria Urine Automated Negative (Negative); Bilirubin Urine Negative (Negative); Blood Urine 1+ (Negative); Color Urine Yellow; Glucose Urine UA Negative (Negative); Ketones Urine Negative (Negative); Leukocyte Esterase Urine Negative (Negative); Nitrite Urine Negative (Negative); Protein Urine Negative (Negative); Specific Gravity Urine 1.013 (1.000-1.030); Urobilinogen Urine Negative (Negative); pH Urine 7.5 (4.5-7.5)
[2020-01-08] MEDS ORDERED: BACITRACIN INJ 50,000 UNIT VIAL ONE (06:55)
[2020-01-08] MEDS ORDERED: GLYCOPYRROLATE 0.2 MG/ML VIAL ONE (07:09)
[2020-01-08] MEDS ORDERED: MIDAZOLAM HCL 1 MG/ML 2ML VIAL ONE (07:09)
[2020-01-08] MEDS ORDERED: NEOSTIGMINE METHYLSULFATE 5 MG/5 ML SYR ONE (07:09)
[2020-01-08] MEDS ORDERED: LIDOCAINE HCL 2% 2 ML VIAL/AMP(20MG/ML) INFIL ONE (07:09)
[2020-01-08] MEDS ORDERED: fentaNYL citrate 100 MCG/2 ML VIAL ONE ×2 (07:09→08:47)
[2020-01-08] MEDS ORDERED: ONDANSETRON INJ 2 MG/ML 2 ML VIAL ONE (07:09)
[2020-01-08] MEDS ORDERED: PROPOFOL IV EMULSION 10 MG/ML 20 ML VIAL IV ONE (07:09)
[2020-01-08] MEDS ORDERED: DEXAMETHASONE SOD INJ 4 MG/ML VIAL ONE (07:09)
[2020-01-08] MEDS ORDERED: PROPOFOL IV EMULSION 10 MG/ML 100 ML VIAL IV ONE (07:22)
--- NOTE | 2020-01-08 07:40 | History & Physical Bridge Note ---
Date of Service January 08, 2020 History & Physical Bridge Note I have examined the patient, reviewed the History & Physical and in the interval since the performance of the History & Physical I have noted the following changes of clinical significance: no changes noted
--- NOTE | 2020-01-08 07:41 | History & Physical Report ---
Date of Service January 08, 2020 Assessment & Plan (1) Cervical stenosis of spinal canal: C5-C7 anterior cervical discectomy and fusion Present on Admission?: Yes History of Present Illness Chief Complaint: Neck and arm pain Primary Care Provider: Anthony Salas PA-C This is a 54-year-old female presents with chronic persistent neck and arm pain after failing extensive course of nonoperative care is here for surgical invention. Allergies Allergy/AdvReac Type Severity Reaction Status Date / Time ketorolac Allergy Severe throat Verified 01/08/20 06:14 mohamud and kiara Home Medications Home Medications Medication Instructions Recorded Confirmed Type albuterol sulfate 2 puff INHALATION QID PRN 11/02/19 01/08/20 History aspirin [Aspir-81] 81 mg PO QAM 11/02/19 01/08/20 History atorvastatin [Lipitor] 20 mg PO QAM 11/02/19 01/08/20 History buspirone 20 mg PO BID 11/02/19 01/08/20 History calcium carbonate-vitamin D3 1 tab PO QAM 11/02/19 01/08/20 History [Caltrate 600 plus D] fluticasone propion-salmeterol 2 puff INHALATION BID 11/02/19 01/08/20 History [Advair HFA] hydrocodone-acetaminophen 1 tab PO Q4H PRN 11/02/19 01/08/20 History lisinopril 5 mg PO QAM 11/02/19 01/08/20 History methocarbamol 500 mg PO BID 11/02/19 01/08/20 History multivitamin 1 tab PO QAM 11/02/19 01/08/20 History omeprazole magnesium [Prilosec OTC] 20 mg PO QAM 11/02/19 01/08/20 History oxycodone 5 - 10 mg PO Q4H PRN 11/02/19 01/08/20 History Past Med/Surg History Medical History Age related osteoporosis Anxiety Chronic neck and back pain Chronic obstructive pulmonary disease Advair BID and albuterol ~ once/week Degenerative disc disease Diabetes mellitus, type 2 diet controlled GERD (gastroesophageal reflux disease) Hyperlipidemia Hypertension Osteoarthritis Rheumatoid arthritis Not on any medications, states was confirmed with bloodwork. Scoliosis Surgical History Fusion of spine lumbar x 2 History of arthroscopy Left knee scope x 6 History of bilateral tubal ligation History of colonoscopy S/P excision of neuroma left foot Family History Brother Family history of esophageal cancer Social History Preferred Language: Greek Communication Ability: Effective Rag Grader Required: No Beliefs That Will Affect Care: None Current Living Situation: Spouse Other Information That Helps Us Care for You: No Feels Safe at Home: Yes Safety Concerns: Feels Safe At This Time Smoking Status: Current every day smoker Tobacco Type: cigarettes ; Cigarettes Per Day: 1/2 ppd ; Do You Dip or Chew Tobacco: No ; Second Hand Exposure: Yes (parents smoked) ; Tobacco Cessation Education Requested by Patient: No Hx Alcohol Use: Yes Alcohol type: other Hx Substance Use: Yes (smokes marijuana daily) substance use type: marijuana Last Used Substance: Days (ago) Last Used Substance Other:: 01/02/20 Physical Exam Physical Exam: Patient is alert and oriented neurologically intact Heart regular rate and rhythm Lungs clear to auscultation Results & Data Vital Signs (Past 12 Hours) Vital Signs Temp Pulse Resp BP Pulse Ox 01/08/20 06:32 37 C 80 18 167/89 H 97
[2020-01-08] MEDS ORDERED: ONDANSETRON INJ 2 MG/ML 2 ML VIAL IV PRN (07:45)
[2020-01-08] MEDS ORDERED: ATROPINE SULFATE 0.1 MG/ML 10ML SYR IV PRN (07:45)
[2020-01-08] MEDS ORDERED: ePHEDrine sulfate 50 MG/ML AMP IV PRN (07:45)
[2020-01-08] MEDS ORDERED: PHENYLEPHRINE 100MCG/ML 5ML SYR IV PRN (07:45)
[2020-01-08] MEDS ORDERED: MEPERIDINE HCL 25 MG/ML CARP/VIAL IV PRN (07:45)
[2020-01-08] MEDS ORDERED: LABETALOL HCL IV 5 MG/ML 20ML IV PRN (07:45)
[2020-01-08] MEDS ORDERED: FLOSEAL HEMOSTATIC MATRIX 10ML TOP ONE (09:22)
--- NOTE | 2020-01-08 09:36 | Operative Report ---
Post Operative Report Pre & Post Diagnosis Operation Date: 01/08/20 07:45 Pre-Op Diagnosis: CERVICAL SPINAL STENOSIS Post-Op Diagnosis: CERVICAL SPINAL STENOSIS I identified the patient and participated in the time-out.: Yes Procedure Operation Date: 01/08/20 07:45 Actual Procedures #1 anterior cervical discectomy with bilateral foraminotomies C5-6 and C6-7. #2 anterior cervical arthrodesis C5-6 and C6-7. #3 placement of Spira 7 mm cage filled with DBM C5-6 and C6-7. #4 application of 5 complete screws across C5-6 and C6-7. Surgeon Abraham Weinberg, Dust Mill Operator Gladys Ruffin Estimated Blood Loss 10 Findings Consistent with Post-Op Diagnosis Specimens None Indications This is a 54-year-old female presents with chronic persistent neck and arm symptoms. After failing extensive course of nonoperative care is here for surgical intervention. Description of Procedure Patient was met with identified informed consent obtained. Patient was then taken to the operative suite underwent intubation placed in a supine position the Som table head Wren head doffer. All bony prominences well-padded eyes inspected to ensure no external pressure placed upon but this point the anterior cervical spine was prepped and draped in normal sterile fashion. With the assistance of fluoroscopy identified the C6 vertebral body and a transverse incision was placed on the right anterior aspect of the cervical spine overlying this region. Sharp dissection with the assistance of bipolar electrocautery was performed down to and exposing the anterior cervical spine from C5-C7. Self- retaining retractors placed. Then performed a complete discectomy of C5-6 out to the uncovertebral joints bilaterally. [place] distracting pins were utilized. Removed all posterior annular fibers longitudinal ligament. Endplates were then burred to subcortical being bone and a 7 mm Spira cage filled with DBM tapped in position. Then proceeded to C6-7 again complete discectomy performed to the uncovertebral's bilaterally. [place] distracting pins again utilized. Removed all posterior annular fibers longitudinal ligament bilateral foraminotomies performed. Again a 7 mm Spira cage filled with DBM tapped in position. Distracting apparatus was removed and a serrato plate and screws ap plied with the assistance of fluoroscopy. Incision was then copiously irrigated explored to ensure no damage to surrounding structures remaining bleeding. 10 round WILLIAM drain inserted. The incision was then closed with 2 Vicryl in a fashion of 4 Monocryl for final skin closure. Steri-Strip sterile dressings placed. Patient will continue PACU stable condition. Please note spinal cord monitoring was utilized throughout the procedure procedure no changes noted. Lastly Gladys Ruffin was present at the entire procedure involved the patient positioning complex portions of the surgery and final skin closure. I attest to the content of the Intraoperative Record and any orders documented therein. Any exceptions are noted below.
--- NOTE | 2020-01-08 09:43 | Fluoroscopy Report ---
FL cervical 2-3V CLINICAL HISTORY: ACDF C5-7 COMPARISON STUDY: None FLUOROSCOPY TIME: 6 seconds NUMBER OF FLUOROSCOPIC IMAGES: 2 FINDINGS: Image intensifier support for a C5-C7 laminectomy and fusion IMPRESSION: Image intensifier support for C5-C7 anterior fusion ACT 112: Negative or not required by law. The above report was generated using voice recognition software. It may contain grammatical, syntax or spelling errors. Electronically signed by: Dale Cesar M.D. 01/08/2020 9:42 AM
[2020-01-08] MEDS ORDERED: HYDROmorphone INJ 2 MG/ML SYR/VIAL ONE (09:50)
[2020-01-08] MEDS: fentaNYL citrate 100 MCG/2 ML VIAL IV PRN ×4 (10:10→10:25)
[2020-01-08] MEDS: HYDROmorphone INJ 1 MG/ML SYRINGE IV PRN ×11 (10:33→21:25)
--- NOTE | 2020-01-08 10:38 | Anesthesiology Progress Note ---
Date of Service January 08, 2020 Anesthesia Post Procedure Vital Signs Vital Signs: Temp Pulse Pulse Resp BP Pulse Ox 01/08/20 10:35 88 12 154/83 H 99 01/08/20 10:25 69 12 160/85 H 100 01/08/20 10:15 69 19 161/88 H 98 01/08/20 10:05 84 26 H 156/94 H 99 01/08/20 09:58 36.5 C 80 16 166/92 H 97 01/08/20 06:32 37 C 80 18 167/89 H 97 Transfer of Care Handoff Completed per policy Notes Mental Status: alert / awake / arousable Patient Amnestic to Procedure: Yes Nausea / Vomiting: adequately controlled Pain: adequately controlled Airway Patency, RR, SpO2: stable & adequate BP & HR: stable & adequate Hydration State: stable & adequate Anesthetic Complications: no major complications apparent and Pt Satisfied with anesthetic care Notes: The patient is awake and stable. Her neck does not appear swollen.
[2020-01-08] MEDS ORDERED: PROMETHAZINE HCL 12.5 MG in SODIUM CHLORIDE 0.9% 50 ML IV PRN (11:34)
[2020-01-08] MEDS ORDERED: METOCLOPRAMIDE HCL INJ 5 MG/ML 2 ML VIAL IV PRN (11:34)
[2020-01-08] MEDS ORDERED: DO NOT ADMINISTER PNEUMOCOCCAL VACCINE PRN (11:34)
[2020-01-08] MEDS ORDERED: NALOXONE HCL 0.4 MG/1 ML VIAL/CARP IV PRN (11:34)
[2020-01-08] MEDS ORDERED: RACEPINEPHRINE 2.25% NEBU SOLN 0.5 ML VIAL INH PRN (11:34)
[2020-01-08] MEDS ORDERED: TRAMADOL HCL 50 MG TABLET PO PRN (11:34)
[2020-01-08] MEDS ORDERED: DO NOT ADMINISTER FLU VACCINE PRN (11:34)
[2020-01-08] MEDS ORDERED: LORazepam 0.5 MG/1 ML VIAL IV PRN (11:34)
[2020-01-08] MEDS ORDERED: DEXAMETHASONE SOD PHOSPHATE 8 MG in SYRINGE 0 ML IV PRN (11:34)
[2020-01-08] MEDS ORDERED: MAGNESIUM HYDROXIDE SUSP 30 ML UDC PO PRN (11:34)
[2020-01-08] MEDS ORDERED: ALBUTEROL HFA 8 GM INHALER INH PRN (11:34)
[2020-01-08] MEDS ORDERED: FAMOTIDINE 20 MG TAB PO PRN (11:34)
[2020-01-08] MEDS ORDERED: HYDROmorphone INJ 0.5 MG/0.5 ML SYR IV PRN (11:34)
[2020-01-08] MEDS ORDERED: ACETAMINOPHEN 500 MG TAB PO PRN (11:34)
[2020-01-08] MEDS ORDERED: SOD PHOSPHATE/SOD BIPHOSPHATE ENEMA 132 ML BTL PR PRN (11:34)
[2020-01-08] MEDS ORDERED: ACETAMINOPHEN 1,000 MG/100 ML VIAL IV PRN (11:34)
[2020-01-08] MEDS ORDERED: ONDANSETRON 4 MG OD TAB PO PRN (11:34)
[2020-01-08] MEDS ORDERED: ALUMINUM/MAGNESIUM SUSP 30 ML UDC PO PRN (11:34)
[2020-01-08] MEDS: LACTATED RINGER'S 1,000 ML IV SCH ×2 (12:22→21:26)
[2020-01-08] MEDS: OXYCODONE HCL IR 5 MG TAB (IMMEDIATE RELEASE) PO PRN ×2 (13:20→20:14)
[2020-01-08] MEDS: LORazepam 0.5 MG TAB PO PRN (15:47)
[2020-01-08] MEDS: CEFAZOLIN 1000MG 1,000 MG/7.5 ML SYR IV SCH (15:49)
[2020-01-08] MEDS: NICOTINE 14 MG/24 HR PATCH TD SCH (16:33)
[2020-01-08] MEDS: lisinopriL 5 MG TAB PO SCH (16:47)
[2020-01-08] MEDS: METHOCARBAMOL 500 MG TABLET PO SCH (20:15)
[2020-01-08] MEDS ORDERED: DOCUSATE SODIUM/SENNA 50/8.6MG TAB PO SCH (21:00)
[2020-01-09] MEDS: HYDROmorphone INJ 1 MG/ML SYRINGE IV PRN ×3 (00:35→09:34)
[2020-01-09] MEDS: LORazepam 0.5 MG TAB PO PRN ×2 (00:35→08:42)
[2020-01-09] MEDS: CEFAZOLIN 1000MG 1,000 MG/7.5 ML SYR IV SCH (00:40)
[2020-01-09] MEDS: OXYCODONE HCL IR 5 MG TAB (IMMEDIATE RELEASE) PO PRN (03:22)
[2020-01-09] MEDS: ONDANSETRON INJ 2 MG/ML 2 ML VIAL IV PRN ×2 (06:07→11:28)
[2020-01-09] MEDS: NICOTINE 14 MG/24 HR PATCH TD SCH (08:35)
[2020-01-09] MEDS: lisinopriL 5 MG TAB PO SCH (08:36)
[2020-01-09] MEDS: METHOCARBAMOL 500 MG TABLET PO SCH (08:36)
[2020-01-09] MEDS: POLYETHYLENE (MIRALAX) 17 GM PACK PO SCH ×2 (08:37→11:43)
[2020-01-09] MEDS ORDERED: CALCIUM 600MG + VIT D 400 IU TAB PO SCH (09:00)
[2020-01-09] MEDS ORDERED: FLUTICASONE/VILANTEROL 100/25MCG 14 PUFFS/INHALER INH SCH (09:00)
[2020-01-09] MEDS ORDERED: ATORVASTATIN 20 MG TAB PO SCH (09:00)
[2020-01-09] MEDS ORDERED: MULTIVITAMIN TAB PO SCH (09:00)
[2020-01-09] MEDS ORDERED: PANTOprazole 40 MG TAB PO SCH (09:00)
[2020-01-09] MEDS ORDERED: ASPIRIN 81 MG ECTAB PO SCH (09:00)
--- NOTE | 2020-01-09 13:50 | Discharge Summary ---
Date of Service January 09, 2020 Admission HPI Per Admitting Provider This is a 54-year-old female presents with chronic persistent neck and arm pain after failing extensive course of nonoperative care is here for surgical invention. Principal Diagnosis Cervical spinal stenosis with radiculopathy Discharge Data Allergies Allergy/AdvReac Type Severity Reaction Status Date / Time ketorolac Allergy Severe throat Verified 01/08/20 06:14 swells and hives Procedures Performed Operation Date: 01/08/20 07:45 Actual Procedures p C5-C7 Anterior Cervical Discectomy and Fusion, Spinal Cord Monitoring, Application of DBM(Not Applicable) - Abraham Weinberg DO Ordered Studies 01/08/20 07:45 FL cervical 2-3V Routine FL fluoroscopy <1hr Routine Hospital Course (1) Cervical stenosis of spinal canal: Patient underwent anterior cervical discectomy and fusion tolerated this well was taken to the orthopedic floor postoperative. Postop day 1 she was up and ambulating swallowing well. No hoarseness. Arm symptoms improved. Pain controlled. Subsequently discharged home. Discharge orders and instructions found in the chart for further review. Total Time Total Time Spent Total Time Spent (In Minutes): 20 minutes Discharge Plan Discharge Items Patient Disposition: Home - Self-Care Reason For Visit: CERVICAL SPINAL STENOSIS Discharge Diagnosis: Cervical spinal stenosis with radiculopathy Activity: As commented below Non-emergency contact: Primary Care Provider Call non-emergency contact if: you have any medication questions Follow-up/Referrals: Anthony Salas PA-C [Primary Care Provider] - Diet: Regular Addtl Attending Provider Instructions: ACTIVITY RECOMMENDATIONS: SELF CARE INSTRUCTIONS AFTER CERVICAL FUSIONS 1. No smoking. Smoking drastically decreases the chance of a solid fusion. 2. No bending, lifting more than 5 pounds, or twisting (roll like a log when turning in bed). 3. You may shower 3 days after surgery. Thoroughly dry wound. Do not soak in the tub. 4. Cervical collar: Must be worn at all times including sleeping. You may remove the brace only to bath, eat and if you are sitting in a recliner. 5. Please walk as much as you can for exercise. Gradually increase the distance that you walk as your endurance increases. SPECIAL CARE INSTRUCTIONS: VERY IMPORTANT TO READ AND REVIEW A. Do not take any anti-inflammatory medications (i.e. Indocin, Advil, Aspirin, Naprosyn, Aleve, Motrin, etc.) as these may inhibit the chance of a solid fusion. Tylenol is okay to take. B. Your surgical incision has been closed with a cosmetic suture under the skin that will dissolve in about 6 weeks. In 14 days, you can use a pair of clean scissors and cut the suture that is left outside of the skin at the ends of your incision. C. Complications are uncommon, but please contact us if you have any signs or symptoms of: 1. wound infection (fever higher than 102.5 degrees F, redness, separation of wound, drainage, or increasing pain from the incision) 2. blood clots in legs (pain, swelling, redness and warmth in legs) 3. urinary tract infection (fever higher than 102.5 degrees, burning upon urination or increased frequency of urination) 4. nerve problems (inability to walk on your toes or heels, numbness, loss of bowel or bladder control) 5. any other symptoms that concern you. D. Please call the office at if you have any concerns or questions about your operation or recovery. MANAGING PAIN AFTER SPINAL SURGERY 1. Narcotic medication is intended for short-term use and will be provided for surgical pain. Surgical pain usually lasts for a period of 4-6 weeks. Narcotic medication includes Percocet, Vicodin, Darvocet, Tylenol #3 or Lortab. 2. Longer-term pain is more appropriately treated with non-narcotic medication such as Tylenol ES. 3. Muscle spasm is not appropriately treated with narcotics. Muscle relaxers such as Soma, Flexeril or Skelaxin can be used along with Tylenol ES. 4. Remember that we all live with some "aches and pains". This is not unusual or uncommon after an injury or as we get older. 5. We will provide appropriate medication within the normal guidelines of their prescribed use. We will also be very cautious and aware of potential abuse and extended duration of patients' medication needs. 6. Please allow 2-3 days to process refills. Prescriptions will not be mailed but must be picked up at the office. FOLLOW UP VISIT: Keep your scheduled follow-up appointment. Any questions, please call the office at . Pending Studies at Discharge: No Stand-Alone Forms: My [facility], Smoking Cessation Medications and DC Order Prescriptions: New tramadol 50 mg tablet 50 mg PO Q6H PRN (Reason: pain, moderate) Qty: 20 RF: 0 oxycodone 5 mg tablet 5 mg PO Q6H PRN (Reason: pain, severe) Qty: 20 RF: 0 Continued methocarbamol 500 mg Tablet 500 mg PO BID RF: 0 buspirone 10 mg Tablet 20 mg PO BID RF: 0 omeprazole magnesium [Prilosec OTC] 20 mg Tablet,Delayed Release (Dr/Ec) 20 mg PO QAM RF: 0 multivitamin Tablet 1 tab PO QAM RF: 0 atorvastatin [Lipitor] 20 mg Tablet 20 mg PO QAM RF: 0 aspirin [Aspir-81] 81 mg Tablet,Delayed Release (Dr/Ec) 81 mg PO QAM RF: 0 lisinopril 5 mg Tablet 5 mg PO QAM RF: 0 albuterol sulfate 90 mcg/actuation Hfa Aerosol Inhaler 2 puff INHALATION QID PRN (Reason: Shortness Of Breath) RF: 0 oxycodone 5 mg Tablet 5 - 10 mg PO Q4H PRN (Reason: Pain) RF: 0 Caltrate 600 plus D 600 mg (1,500 mg)-800 unit Tablet,Chewable 1 tab PO QAM RF: 0 Advair HFA 115-21 mcg/actuation Hfa Aerosol Inhaler 2 puff INHALATION BID RF: 0 Discontinued hydrocodone-acetaminophen 5-300 mg Tablet 1 tab PO Q4H PRN (Reason: Pain) RF: 0 Discharge Orders: Discharge Order (Routine); Ordered 01/09/20 Ordered By: Abraham Weinberg Admission Data Admit Date/Time: 01/08/20 10:09 Attending Provider: Abraham Weinberg Admit Provider: Abraham Weinberg Primary Care Provider: Anthony Salas Other Interventions: Discharge Summary Assessment (RN) Last Done: 01/09/20 13:10 DC Date/Time DO NOT enter until pt leaves facility: 01/09/20 13:24
[2020-01-10] MEDS ORDERED: bisacodyL 10 MG SUPP PR PRN (09:41)
== END 2020-01-09 13:24 | disposition home or self-care (01) | DRG 473 ==
LOC: ASU 05:39 → 3E 10:09

== ENCOUNTER 2022-11-09 07:31 | Inpatient (IN) ==
--- NOTE | 2022-10-20 12:15 | PAT Medication Instructions ---
Medication Instructions Date of Service October 20, 2022 Home Medications albuterol sulfate 90 mcg/actuation aerosol inhaler 2 puff inhalation QID PRN Shortness Of Breath aspirin 81 mg tablet,delayed release (Aspir-) 81 mg PO QAM atorvastatin 20 mg tablet (Lipitor) 20 mg PO QAM buspirone 10 mg tablet 20 mg PO BID calcium carbonate 600 mg-vitamin D3 20 mcg (800 unit) chewable tablet (Caltrate 600 plus D) 1 tab PO QAM fluticasone propionate 115 mcg-salmeterol 21 mcg/actuation HFA inhaler (Advair HFA) 2 puff inhalation BID lisinopril 5 mg tablet 5 mg PO QAM methocarbamol 500 mg tablet 500 mg PO TID multivitamin 1 tab PO QAM omeprazole magnesium 20 mg tablet,delayed release (Prilosec OTC) 20 mg PO QAM acetaminophen 650 mg tablet,extended release 1,300 mg PO Q6H PRN Pain buprenorphine 300 mg/1.5 mL solution,exten.rel.subcutaneous syringe (Sublocade) 300 mg subcut Q30D duloxetine 30 mg capsule,delayed release 30 mg PO QAM duloxetine 60 mg capsule,delayed release 60 mg PO QAM gabapentin 400 mg tablet 400 mg PO TID ipratropium bromide 21 mcg (0.03 %) nasal spray 2 spray intranasal BID PRN allergies melatonin 10 mg tablet 10 mg PO HS PRN Sleep ondansetron 4 mg disintegrating tablet 4 mg PO Q6H PRN Nausea pantoprazole 40 mg tablet,delayed release 40 mg PO QAM Continue as directed ipratropium bromide 21 mcg (0.03 %) nasal spray 2 spray intranasal BID PRN allergies buprenorphine 300 mg/1.5 mL solution,exten.rel.subcutaneous syringe (Sublocade) 300 mg subcut Q30D ASK your prescriber and surgeon aspirin 81 mg tablet,delayed release (Aspir-) 81 mg PO QAM DO NOT take the morning of surgery multivitamin 1 tab PO QAM calcium carbonate 600 mg-vitamin D3 20 mcg (800 unit) chewable tablet (Caltrate 600 plus D) 1 tab PO QAM lisinopril 5 mg tablet 5 mg PO QAM methocarbamol 500 mg tablet 500 mg PO TID Take morning of surgery With a small sip of water, OTHERWISE NOTHING TO EAT OR DRINK AFTER MIDNIGHT: albuterol sulfate 90 mcg/actuation aerosol inhaler 2 puff inhalation QID PRN Shortness Of Breath (use if needed; bring to hospital) omeprazole magnesium 20 mg tablet,delayed release (Prilosec OTC) 20 mg PO QAM atorvastatin 20 mg tablet (Lipitor) 20 mg PO QAM ondansetron 4 mg disintegrating tablet 4 mg PO Q6H PRN Nausea (take if needed) pantoprazole 40 mg tablet,delayed release 40 mg PO QAM gabapentin 400 mg tablet 400 mg PO TID acetaminophen 650 mg tablet,extended release 1,300 mg PO Q6H PRN Pain (take if needed) buspirone 10 mg tablet 20 mg PO BID duloxetine 30 mg capsule,delayed release 30 mg PO QAM duloxetine 60 mg capsule,delayed release 60 mg PO QAM fluticasone propionate 115 mcg-salmeterol 21 mcg/actuation HFA inhaler (Advair HFA) 2 puff inhalation BID Take evening before surgery gabapentin 400 mg tablet 400 mg PO TID buspirone 10 mg tablet 20 mg PO BID melatonin 10 mg tablet 10 mg PO HS PRN Sleep (if needed) acetaminophen 650 mg tablet,extended release 1,300 mg PO Q6H PRN Pain (if needed) methocarbamol 500 mg tablet 500 mg PO TID fluticasone propionate 115 mcg-salmeterol 21 mcg/actuation HFA inhaler (Advair HFA) 2 puff inhalation BID Other Notes If you have any questions please call us at [phone] or [phone] or [phone] or [phone]
--- NOTE | 2022-10-26 10:56 | Anesthesiology Consultation ---
Date of Service October 26, 2022 Assessment & Plan (1) Encounter for pre-operative examination: - check BSG am DOS. - buprenorphine: fine to continue per anesthesia. Pt states prescriber is managing daysi-operative adjustments as advised by their clinic, scanned to chart under 10/26/22 care correspondence. - PCP clearance 10/23/22 [facility]: "...pre-op exam. Will be having a spinal fusion on 11-09-22 at [facility] by Dr Weinberg...OK for surgery as planned as long as pre-op testing is within acceptable limits..." Chart Review Chart Review: Acceptable Risk for Surgery and Patient seen in Pre Admission Testing Teaching & Discussion Pre-Anesthesia Teaching/Discussion Notes: Instructed NPO after midnight before surgery, except medications with 15 cc of water. Medication instructions provided according to the PAT guidelines. History Surgery Operation Date: 11/09/22 10:35 Proposed Procedures p L3-L4 Decompression and Fusion, L4-L5 Hardware Removal, Spinal Cord Monitoring - Abraham Weinberg, Height/Weight Height: 5 ft 8 in Weight: 53.5 kg Allergies Allergy/AdvReac Type Severity Reaction Status Date / Time ketorolac Allergy Severe throat Verified 10/20/22 10:53 swells and hives ibuprofen Allergy diarrhea Verified 10/20/22 10:53 and upset stomach Medications Home Medications Medication Instructions Recorded Confirmed Last Taken albuterol sulfate 90 mcg/actuation 2 puff inhalation QID PRN 11/02/19 10/20/22 01/08/20 04:00 aerosol inhaler Shortness Of Breath aspirin 81 mg tablet,delayed 81 mg PO QAM 11/02/19 10/20/22 01/01/20 release (Aspir-) atorvastatin 20 mg tablet (Lipitor) 20 mg PO QAM 11/02/19 10/20/22 01/07/20 07:30 buspirone 10 mg tablet 20 mg PO BID 11/02/19 10/20/22 01/07/20 07:30 calcium carbonate 600 mg-vitamin 1 tab PO QAM 11/02/19 10/20/22 01/01/20 D3 20 mcg (800 unit) chewable tablet (Caltrate 600 plus D) fluticasone propionate 115 2 puff inhalation BID 11/02/19 10/20/22 01/07/20 mcg-salmeterol 21 mcg/actuation HFA inhaler (Advair HFA) lisinopril 5 mg tablet 5 mg PO QAM 11/02/19 10/20/22 01/07/20 07:30 methocarbamol 500 mg tablet 500 mg PO TID 11/02/19 10/20/22 01/03/20 multivitamin 1 tab PO QAM 11/02/19 10/20/22 01/01/20 omeprazole magnesium 20 mg 20 mg PO QAM 11/02/19 10/20/22 01/01/20 tablet,delayed release (Prilosec OTC) acetaminophen 650 mg 1,300 mg PO Q6H PRN Pain 03/13/22 10/20/22 Unknown tablet,extended release buprenorphine 300 mg/1.5 mL 300 mg subcut Q30D 03/13/22 10/20/22 Unknown solution,exten.rel.subcutaneous syringe (Sublocade) duloxetine 30 mg capsule,delayed 30 mg PO QAM 03/13/22 10/20/22 Unknown release duloxetine 60 mg capsule,delayed 60 mg PO QAM 03/13/22 10/20/22 Unknown release gabapentin 400 mg tablet 400 mg PO TID 03/13/22 10/20/22 Unknown ipratropium bromide 21 mcg (0.03 2 spray intranasal BID PRN 03/13/22 10/20/22 Unknown %) nasal spray allergies melatonin 10 mg tablet 10 mg PO HS PRN Sleep 03/13/22 10/20/22 Unknown ondansetron 4 mg disintegrating 4 mg PO Q6H PRN Nausea 03/13/22 10/20/22 Unknown tablet pantoprazole 40 mg tablet,delayed 40 mg PO QAM 03/13/22 10/20/22 Unknown release Past Medical History Medical History (Updated 10/26/22 @ 11:01 by Alva Harrell PA-C) Age related osteoporosis Anxiety Chronic neck and back pain Chronic obstructive pulmonary disease daily and prn inh, last rescue inhaler use > 3 months ago Degenerative disc disease Diabetes mellitus, type 2 Diet controlled GERD (gastroesophageal reflux disease) controlled, stable per pt History of COVID-19 08/04/22, home test, not hosp>went to ER because of symptoms; SOB, body aches, decreased appetite, fatigue>resolved. Hx of hepatitis C ~2014, treated and cleared Hyperlipidemia Hypertension controlled, stable per pt Potential difficult airway on pre-intubation assessment s/p cervical spine fusion Rheumatoid arthritis Confirmed with bloodwork, no meds Scoliosis Patient denies h/o stroke, seizures, heart attack, heart failure, blood clots or blood transfusions. Exercise / Class Metabolic Activity II 4-5 Yardwork/Stairs/Walk up hill (denies chest discomfort or shortness of breath with 1 FOS) Past Family History Family History Brother Family history of esophageal cancer Past Surgical History Surgical History Fusion of spine Lumbar x2 History of arthroscopy Left knee scope x6 History of bilateral tubal ligation History of open reduction and internal fixation (ORIF) procedure Right foot pinning Hx of colonoscopy Hx of fusion of cervical spine ACDF C5-7 (01/08/20): C-spine neutral throughout, Elective glidescope #3, atraumatic x1, ETT 7 at [facility]. No issues noted per post-op anesthesia progress note. S/P excision of neuroma Left foot x2 Past Anesthesia History No Hx of Anesthesia Complications and No Family Hx of Anesthesia Complications History of PONV No Hx of PONV and No Hx of Motion Sickness Social History Smoking Status: Current every day smoker (-advised) tobacco type: cigarettes Smoking cigarettes per day: 10 Do You Dip or Chew Tobacco: No Hx Alcohol Use: Yes (usman) Alcohol type: other alcohol intake frequency: 3 or more drinks per day Hx Substance Use: Yes substance use type: marijuana Last Used Substance: Days (ago) Last Used Substance Other:: daily Review of Systems Snoring, denies witnessed apneas. Rare palpitations, chronic, when in pain or stressed, denies associated dizziness, lightheadedness, chest discomfort or shortness of breath; denies change or worsening. Patient denies chest pain, shortness of breath, dyspnea on exertion, fever, chills, cough, or wheezing. Physical Exam Vital Signs Vitals BP 115/79 P 103 TEMP 97.9 SP02 96% on RA RESP 18 Physical Full cervical extension range of motion without pain TMD 3.5 finger breadths Mallampati Score 2 Dentition: full upper and lower dentures Lungs: normal respiratory effort. Clear throughout to auscultation, no adventitious breath sounds Cardiac: regular rate and rhythm, no murmurs noted Carotid arteries: negative bruit bilat Lab Results Anesthesia Preop Results Results Anesthesia Widget: WBC 7.37 K/ul (4.8-10.8) 10/26/22 Hgb 13.7 g/dl (12.0-16.0) 10/26/22 Hct 41.1 % (37.0-47.0) 10/26/22 Plt 321 K/uL (130-400) 10/26/22 Na 138 mmol/L (136-145) 10/26/22 K 4.0 mmol/L (3.5-5.1) 10/26/22 Cl 104 mmol/L (98-107) 10/26/22 CO2 28 mmol/L (21-32) 10/26/22 BUN 9 mg/dl (6-23) 10/26/22 Creat 0.74 mg/dl (0.6-1.2) 10/26/22 Glucose Level 108 mg/dl (70-99(Fasting)) H 10/26/22 PT 10.2 Seconds (9.0-12.0) 10/26/22 PTT 29.4 Seconds (21.0-31.0) 10/26/22 INR 1.0 (0.9-1.1) 10/26/22 HA1c 5.7 % (4.5-5.6) H 10/26/22 Urine Color Yellow 10/26/22 Urine Appearance Clear (Clear) 10/26/22 Urine pH 7.0 (4.5-7.5) 10/26/22 Urine Specific [place] 1.014 (1.000-1.030) 10/26/22 Urine Protein Negative (Negative) 10/26/22 Urine Glucose (UA) Negative (Negative) 10/26/22 Urine Ketones Negative (Negative) 10/26/22 Urine Blood Trace (Negative) H 10/26/22 Urine Nitrite Negative (Negative) 10/26/22 Urine Bilirubin Negative (Negative) 10/26/22 Urine Urobilinogen Negative (Negative) 10/26/22 Urine Leukocyte Esterase Negative (Negative) 10/26/22 Urine WBC (Auto) 1-5 /hpf (0-5) 10/26/22 Urine RBC (Auto) 5-10 /hpf (0-4) H 10/26/22 Urine Hyaline Casts (Auto) 0 /lpf (0-5) 10/26/22 Urine Epithelial Cells (Auto) 10-20 /lpf (0-5) H 10/26/22 Urine Bacteria (Auto) Negative (Negative) 10/26/22 Blood Type O Positive 10/26/22 Antibody Screen NEGATIVE 10/26/22 Testing Electrocardiogram Date: 08/07/22 NSR, rate [address] abnormality Chest X-Ray Date: 08/07/22 No evidence of acute cardiopulmonary disease Chronic obstructive pulmonary disease Stress Test Date: 06/28/17 Pharmacologic MPHR 92% Negative for inducible ischemia Frequent PVCs EF 67% Normal LV wall motion Mild tricuspid regurgitation COVID-19 Risk Screen Screening Information COVID-19 Screen Date: 10/26/22 Exposure 21 Days Family/Household +COVID Last 21 Days: No Exposure 10 Days Any COVID Exposure Last 10 Days: No Symptoms Last 10 Days Experienced COVID Sx Last 10 Days: No + COVID 0-90 Days COVID + in Last 0-90 Days: No
[~2022-11-09 07:31] MED LIST changes: +ACETAMINOPHEN 500 MG TAB PO SCH; +GABAPENTIN 600 MG DOSE PO SCH; +LR 15ML/HR IV SCH; -SODIUM CHLORIDE 0.9% 250 ML IV PRN; +ceFAZolin 2000MG 2,000 MG/15 ML SYR IV SCH
[2022-11-09] MEDS ORDERED: MIDAZOLAM HCL 1 MG/ML 2ML VIAL ONE (08:23)
[2022-11-09] MEDS ORDERED: HYDROmorphone INJ 2 MG/ML SYR/VIAL ONE (08:24)
--- NOTE | 2022-11-09 09:00 | History & Physical Bridge Note ---
Date of Service November 09, 2022 History & Physical Bridge Note I have examined the patient, reviewed the History & Physical and in the interval since the performance of the History & Physical I have noted the following changes of clinical significance: no changes noted
--- NOTE | 2022-11-09 09:01 | History & Physical Report ---
Date of Service November 09, 2022 Assessment & Plan (1) Lumbar stenosis with neurogenic claudication: Plan: L3-L4 decompression and fusion, L4-L5 hardware removal History of Present Illness Chief Complaint: Back and leg pain Primary Care Provider: Anthony Salas PA-C This is a 49-year-old female who presents with chronic persistent back and leg pain after failing course of nonoperative care she is here for surgical intervention. Allergies Allergy/AdvReac Type Severity Reaction Status Date / Time ketorolac Allergy Severe throat Verified 11/09/22 08:32 swells and hives ibuprofen Allergy diarrhea Verified 11/09/22 08:32 and upset stomach Home Medications Medication Instructions Recorded Confirmed Type albuterol sulfate 90 mcg/actuation 2 puff inhalation QID PRN 11/02/19 10/20/22 History aerosol inhaler Shortness Of Breath aspirin 81 mg tablet,delayed 81 mg PO QAM 11/02/19 11/09/22 History release (Aspir-) atorvastatin 20 mg tablet (Lipitor) 20 mg PO QAM 11/02/19 11/09/22 History buspirone 10 mg tablet 20 mg PO BID 11/02/19 11/09/22 History calcium carbonate 600 mg-vitamin 1 tab PO QAM 11/02/19 11/09/22 History D3 20 mcg (800 unit) chewable tablet (Caltrate 600 plus D) fluticasone propionate 115 2 puff inhalation BID 11/02/19 11/09/22 History mcg-salmeterol 21 mcg/actuation HFA inhaler (Advair HFA) lisinopril 5 mg tablet 5 mg PO QAM 11/02/19 11/09/22 History methocarbamol 500 mg tablet 500 mg PO TID 11/02/19 11/09/22 History multivitamin 1 tab PO QAM 11/02/19 11/09/22 History omeprazole magnesium 20 mg 20 mg PO QAM 11/02/19 11/09/22 History tablet,delayed release (Prilosec OTC) acetaminophen 650 mg 1,300 mg PO Q6H PRN Pain 03/13/22 11/09/22 History tablet,extended release buprenorphine 300 mg/1.5 mL 300 mg subcut Q30D 03/13/22 11/09/22 History solution,exten.rel.subcutaneous syringe (Sublocade) duloxetine 30 mg capsule,delayed 30 mg PO QAM 03/13/22 11/09/22 History release duloxetine 60 mg capsule,delayed 60 mg PO QAM 03/13/22 11/09/22 History release gabapentin 400 mg tablet 400 mg PO TID 03/13/22 11/09/22 History ipratropium bromide 21 mcg (0.03 2 spray intranasal BID PRN 03/13/22 11/09/22 History %) nasal spray allergies melatonin 10 mg tablet 10 mg PO HS PRN Sleep 03/13/22 11/09/22 History ondansetron 4 mg disintegrating 4 mg PO Q6H PRN Nausea 03/13/22 10/20/22 History tablet pantoprazole 40 mg tablet,delayed 40 mg PO QAM 03/13/22 11/09/22 History release Past Med/Surg History Medical History Age related osteoporosis Anxiety Chronic neck and back pain Chronic obstructive pulmonary disease daily and prn inh, last rescue inhaler use > 3 months ago Degenerative disc disease Diabetes mellitus, type 2 Diet controlled GERD (gastroesophageal reflux disease) controlled, stable per pt History of COVID-19 08/04/22, home test, not hosp>went to ER because of symptoms; SOB, body aches, decreased appetite, fatigue>resolved. Hx of hepatitis C ~2014, treated and cleared Hyperlipidemia Hypertension controlled, stable per pt Potential difficult airway on pre-intubation assessment s/p cervical spine fusion Rheumatoid arthritis Confirmed with bloodwork, no meds Scoliosis Surgical History Fusion of spine Lumbar x2 History of arthroscopy Left knee scope x6 History of bilateral tubal ligation History of open reduction and internal fixation (ORIF) procedure Right foot pinning Hx of colonoscopy Hx of fusion of cervical spine ACDF C5-7 (01/08/20): C-spine neutral throughout, Elective glidescope #3, atraumatic x1, ETT 7 at [facility]. No issues noted per post-op anesthesia progress note. S/P excision of neuroma Left foot x2 Family History Brother Family history of esophageal cancer Social History Smoking Status: Current every day smoker (-advised) Cigarettes Per Day: 10; Second Hand Exposure: Yes; Do You Dip or Chew Tobacco: No; Tobacco Cessation Education Requested by Patient: No Hx Alcohol Use: Yes (usman) Alcohol type: other Hx Substance Use: Yes Last Used Substance: Days (ago) Last Used Substance Other:: daily Preferred Language: Libyan Communication Ability: Effective Client Account Representative Required: No Beliefs That Will Affect Care: None Current Living Situation: Spouse Other Information That Helps Us Care for You: No Feels Safe at Home: Yes Safety Concerns: Feels Safe At This Time Assistive Devices: Denture - Upper and Denture - Lower Physical Exam Physical Exam: Patient is alert and oriented Heart regular rhythm Lungs clear Results & Data Results & Data Vital Signs (Past 12 Hours) Vital Signs Temp Pulse Resp BP Pulse Ox O2 Del Method 11/09/22 08:41 Room Air 11/09/22 08:41 36.7 C 64 16 157/86 H 98 Room Air
[2022-11-09] MEDS: ALLERGY Noted to ORDERED Medication SCH ×4 (09:09→17:02)
[2022-11-09] MEDS ORDERED: Nursing to Pharmacy Communication SCH (09:15)
[2022-11-09] MEDS ORDERED: BUPIVACAINE/EPINEPHRINE 0.25% 1:200,000 30 ML VIAL ONE (09:26)
[2022-11-09] MEDS ORDERED: ceFAZolin 330 MG/ML 1 GM VIAL ONE (09:27)
[2022-11-09] MEDS ORDERED: KETAMINE 50 MG/5 ML SYRINGE ONE (09:37)
[2022-11-09] MEDS ORDERED: DEXAMETHASONE SOD INJ 4 MG/ML VIAL ONE (09:53)
[2022-11-09] MEDS ORDERED: GLYCOPYRROLATE 0.2 MG/ML VIAL ONE (09:53)
[2022-11-09] MEDS ORDERED: SUGAMMADEX SODIUM 200 MG/2 ML VIAL IV ONE (09:53)
[2022-11-09] MEDS ORDERED: ROCURONIUM BROMIDE 10 MG/ML 5 ML VIAL IV ONE (09:53)
[2022-11-09] MEDS ORDERED: LIDOCAINE 2% MPF LOCAL 5 ML VIAL ONE (09:53)
[2022-11-09] MEDS ORDERED: PROPOFOL IV EMULSION 10 MG/ML 20 ML VIAL IV ONE (09:53)
[2022-11-09] MEDS ORDERED: ONDANSETRON INJ 2 MG/ML 2 ML VIAL ONE (09:53)
[2022-11-09] MEDS ORDERED: ePHEDrine sulfate 50 MG/ML AMP IV PRN (09:54)
[2022-11-09] MEDS ORDERED: fentaNYL citrate PF 100 MCG/2 ML VIAL IV PRN (09:54)
[2022-11-09] MEDS ORDERED: PROMETHAZINE HCL 6.25 MG in SODIUM CHLORIDE 0.9% 50 ML IV PRN (09:54)
[2022-11-09] MEDS ORDERED: ATROPINE SULFATE 0.1 MG/ML 10ML SYR IV PRN (09:54)
[2022-11-09] MEDS ORDERED: ONDANSETRON INJ 2 MG/ML 2 ML VIAL IV PRN ×2 (09:54→12:37)
[2022-11-09] MEDS ORDERED: FLOSEAL HEMOSTATIC MATRIX 10ML TOP ONE (10:37)
[2022-11-09] MEDS ORDERED: fentaNYL citrate PF 100 MCG/2 ML VIAL ONE (10:55)
--- NOTE | 2022-11-09 11:00 | Operative Report ---
Post Operative Report Pre & Post Diagnosis Operation Date: 11/09/22 09:45 Pre-Op Diagnosis: Lumbar spinal stenosis with neurogenic claudication Post-Op Diagnosis: Same I identified the patient and participated in the time-out.: Yes Procedure Operation Date: 11/09/22 09:45 Actual Procedures #1 removal of posterior instrumentation L4-L5. #2 exploration of fusion L4-5. #3 lumbar decompression with bilateral medial facetectomies and foraminotomies L2-L3 L3-L4. #4 posterior spinal fusion L3-L4. #5 placement posterior instrumentation L3-L4. #6 interbody fusion L3-L4. #7 placement of Spira 9 x 26 mm cage at L3-L4. #8 placement locally harvested morselized autograft in the posterior gutters. #9 placement of I factor combined the test interbody space and posterior gutters. Surgeon Abraham Weinberg, Jewelry Bench Molder Gladys Ruffin Estimated Blood Loss 50 Findings Consistent with Post-Op Diagnosis Specimens None Indications This is a 49-year-old female known to me the presents with above-mentioned diagnosis after failed course of nonoperative care she is here for surgical invention. Description of Procedure Patient was met with identified informed consent obtained. Patient was then taken to the operative suite underwent a patient placed in a prone position on the [place] table top Jordy frame. All bony prominences well-padded eyes inspected to ensure no external pressure placed upon the. This point lumbar spine was prepped and draped in a sterile fashion. Sharp dissection with the assistance of Bovie cautery performed down to and exposing the lamina and transverse processes of L3 and instrumentation at L4-L5 bilaterally. And then proceeded move the hardware bilaterally explore the fusion mass noting it to be mature and intact. Then performed a complete laminectomy of L4 3 partial laminectomy of L2 including bilateral medial facetectomies and foraminotomies addressing severe spinal stenosis. Pedicle screws were then placed in L3-L4 bilaterally with assistance of fluoroscopy and the properly sized lois placed. Bilateral trans foraminal approach on the left complete discectomy of L3-L4 was performed endplates curetted to subcortical bleeding bone and a 9 x 26 mm Spira cage with I factor tapped in position. The rods were then locked in final posi tion bilaterally. The transverse processes of L3 and L4 burred to subcortical bleeding bone. I factor amount of the test and locally harvested morselized autograft was placed in the posterior gutters. 15 round WILLIAM drain inserted. The incision was then closed with 1 Vicryl the fascia 2-0 Vicryl subcutaneously and 4 Monocryl for final skin closure. Steri-Strips sterile dressings placed. Patient waken taken to PACU stable condition. Please note spinal cord monitoring was utilized at the procedure no changes noted. Lastly Gladys Ruffin was present at the entire surgeon while the patient positioning complex portions of the surgery and final skin closure. I attest to the content of the Intraoperative Record and any orders documented therein. Any exceptions are noted below.
[2022-11-09] MEDS: HYDROmorphone INJ 2 MG/ML SYR/VIAL IV PRN ×8 (11:15→12:00)
--- NOTE | 2022-11-09 11:33 | Fluoroscopy Report ---
FL lumbar spine 2-3V CLINICAL HISTORY: L3-4 DFI/ L4-5 HRstatus post lumbar spine fusion COMPARISON STUDY: 08/18/2017 FLUOROSCOPY TIME: 15.9 seconds FLUOROSCOPY IMAGES: 2 EXPOSURE DOSE: 3.80 mGy FINDINGS: L3-L4, L4-L5 and L5-S1 discectomy changes with posterior interbody lois and screw fusion meagan dware at what appears to be the L3-L4 interspace. Status post removal of the L4-L5 hardware. Hardware appears intact. Multilevel spondylitic spurring. Note that the images were submitted after completio n of the surgery. IMPRESSION: Fluoroscopic assistance as above. ACT 112: Negative or not required by law. Electronically signed by: Edison Smith M.D. 11/09/2022 11:31 AM
[2022-11-09] MEDS ORDERED: ACETAMINOPHEN 500 MG TAB PO PRN (12:37)
[2022-11-09] MEDS ORDERED: ONDANSETRON 4 MG OD TAB PO PRN (12:37)
[2022-11-09] MEDS ORDERED: DO NOT ADMINISTER PNEUMOCOCCAL VACCINE PRN (12:37)
[2022-11-09] MEDS ORDERED: ALBUTEROL HFA 8 GM INHALER INH PRN (12:37)
[2022-11-09] MEDS ORDERED: diphenhydrAMINE Capsule 25 MG CAP PO PRN (12:37)
[2022-11-09] MEDS ORDERED: ALUMINUM/MAGNESIUM SUSP 30 ML UDC PO PRN (12:37)
[2022-11-09] MEDS ORDERED: traMADol HCL 50 MG TABLET PO PRN (12:37)
[2022-11-09] MEDS ORDERED: SOD PHOSPHATE/SOD BIPHOSPHATE ENEMA 132 ML BTL PR PRN (12:37)
[2022-11-09] MEDS ORDERED: DO NOT ADMINISTER FLU VACCINE PRN (12:37)
[2022-11-09] MEDS ORDERED: MAGNESIUM HYDROXIDE SUSP 30 ML UDC PO PRN (12:37)
[2022-11-09] MEDS ORDERED: LORazepam 2 MG/1 ML VIAL IV PRN (12:37)
[2022-11-09] MEDS ORDERED: METOCLOPRAMIDE HCL INJ 5 MG/ML 2 ML VIAL IV PRN (12:37)
[2022-11-09] MEDS ORDERED: FAMOTIDINE 20 MG TAB PO PRN (12:37)
[2022-11-09] MEDS ORDERED: hydrOXYzine HCl 25 MG TAB PO PRN (12:37)
[2022-11-09] MEDS ORDERED: bisacodyL 10 MG SUPP PR PRN (12:37)
[2022-11-09] MEDS ORDERED: ACETAMINOPHEN 1,000 MG/100 ML VIAL IV PRN (12:37)
[2022-11-09] MEDS ORDERED: NALOXONE HCL 0.4 MG/1 ML VIAL/CARP IV PRN (12:37)
[2022-11-09] MEDS ORDERED: PROMETHAZINE HCL 12.5 MG in SODIUM CHLORIDE 0.9% 50 ML IV PRN (12:37)
[2022-11-09] MEDS: LACTATED RINGER'S 1,000 ML IV SCH (13:18)
[2022-11-09] MEDS ORDERED: IPRATROPIUM BROMIDE NASAL SPRAY 0.06% 15ML NAE PRN (13:27)
[2022-11-09] MEDS: LORazepam 0.5 MG TAB PO PRN ×2 (13:28→20:17)
[2022-11-09] MEDS: GABAPENTIN 400 MG CAP PO SCH ×2 (14:54→20:20)
[2022-11-09] MEDS: oxyCODONE HCL IR 5 MG TAB (IMMEDIATE RELEASE) PO PRN ×3 (14:54→23:52)
--- NOTE | 2022-11-09 14:57 | Consultation ---
Date of Consultation November 09, 2022 Assessment & Plan (1) Cervical stenosis of spinal canal: Plan Lumbar spinal stenosis with neurogenic claudication Status post lumbar decompression and fusion and hardware removal: 11/09/[address] Weinberg. Patient seen postoperatively at bedside, hemodynamically stable, reports improvement in her BLE radicular symptoms, reported operative site pain as bearable. Previous labs reviewed, labs in a.m., watch out for blood loss anemia. DVT prophylaxis and PT/OT per primary team. Incentive spirometer. Continue pain management and bowel regimen. Other chronic medical conditions: HTN, HLD, GERD --resume home meds as able. DVT prophylaxis: SCDs for now, chemoprophylaxis when cleared per primary. Full code History of Present Illness Requesting Physician: Dr. Weinberg Reason for Consultation: medical management Attending Physician: Abraham Weinberg, History of Present Illness 57-year-old lady with PMH of HLD, pure hypercholesterolemia, COPD [Gr C, GOLD Criteria], HTN, GERD, age-related osteoporosis, lumbar degenerative disc disease, herniated cervical vertebrae, spinal stenosis of lumbar region with neurogenic claudication was seen and examined at bedside as a medical consult for status post L3-L4 decompression and fusion and L4-L5 hardware removal by Dr. Weinberg on 11/09/2022. Patient denies any acute illness or viral/flulike illness in the last 1 week, denies any problem with the bowel or bladder habit, denies any febrile illness, denies any chest pain or belly pain. Patient does report improvement in her BLE radicular symptoms after the surgery, does report operative site pain, has not moved gas after the surgery today. Medications confirmed with the patient. Allergies Allergy/AdvReac Type Severity Reaction Status Date / Time ketorolac Allergy Severe throat Verified 11/09/22 08:32 swells and hives ibuprofen Allergy diarrhea Verified 11/09/22 08:32 and upset stomach Home Medications Medication Instructions Recorded Confirmed Type albuterol sulfate 90 mcg/actuation 2 puff inhalation QID PRN 11/02/19 10/20/22 History aerosol inhaler Shortness Of Breath aspirin 81 mg tablet,delayed 81 mg PO QAM 11/02/19 11/09/22 History release (Aspir-) atorvastatin 20 mg tablet (Lipitor) 20 mg PO QAM 11/02/19 11/09/22 History buspirone 10 mg tablet 20 mg PO BID 11/02/19 11/09/22 History calcium carbonate 600 mg-vitamin 1 tab PO QAM 11/02/19 11/09/22 History D3 20 mcg (800 unit) chewable tablet (Caltrate 600 plus D) fluticasone propionate 115 2 puff inhalation BID 11/02/19 11/09/22 History mcg-salmeterol 21 mcg/actuation HFA inhaler (Advair HFA) lisinopril 5 mg tablet 5 mg PO QAM 11/02/19 11/09/22 History methocarbamol 500 mg tablet 500 mg PO TID 11/02/19 11/09/22 History multivitamin 1 tab PO QAM 11/02/19 11/09/22 History omeprazole magnesium 20 mg 20 mg PO QAM 11/02/19 11/09/22 History tablet,delayed release (Prilosec OTC) acetaminophen 650 mg 1,300 mg PO Q6H PRN Pain 03/13/22 11/09/22 History tablet,extended release buprenorphine 300 mg/1.5 mL 300 mg subcut Q30D 03/13/22 11/09/22 History solution,exten.rel.subcutaneous syringe (Sublocade) duloxetine 30 mg capsule,delayed 30 mg PO QAM 03/13/22 11/09/22 History release duloxetine 60 mg capsule,delayed 60 mg PO QAM 03/13/22 11/09/22 History release gabapentin 400 mg tablet 400 mg PO TID 03/13/22 11/09/22 History ipratropium bromide 21 mcg (0.03 2 spray intranasal BID PRN 03/13/22 11/09/22 History %) nasal spray allergies melatonin 10 mg tablet 10 mg PO HS PRN Sleep 03/13/22 11/09/22 History ondansetron 4 mg disintegrating 4 mg PO Q6H PRN Nausea 03/13/22 10/20/22 History tablet pantoprazole 40 mg tablet,delayed 40 mg PO QAM 03/13/22 11/09/22 History release Patient History Medical History Age related osteoporosis Anxiety Chronic neck and back pain Chronic obstructive pulmonary disease daily and prn inh, last rescue inhaler use > 3 months ago Degenerative disc disease Diabetes mellitus, type 2 Diet controlled GERD (gastroesophageal reflux disease) controlled, stable per pt History of COVID-19 08/04/22, home test, not hosp>went to ER because of symptoms; SOB, body aches, decreased appetite, fatigue>resolved. Hx of hepatitis C ~2014, treated and cleared Hyperlipidemia Hypertension controlled, stable per pt Potential difficult airway on pre-intubation assessment s/p cervical spine fusion Rheumatoid arthritis Confirmed with bloodwork, no meds Scoliosis Surgical History Fusion of spine Lumbar x2 History of arthroscopy Left knee scope x6 History of bilateral tubal ligation History of open reduction and internal fixation (ORIF) procedure Right foot pinning Hx of colonoscopy Hx of fusion of cervical spine ACDF C5-7 (01/08/20): C-spine neutral throughout, Elective glidescope #3, atraumatic x1, ETT 7 at [facility]. No issues noted per post-op anesthesia progress note. S/P excision of neuroma Left foot x2 Family History Brother Family history of esophageal cancer Social History Smoking Status: Current every day smoker (-advised) Cigarettes Per Day: 10; Second Hand Exposure: Yes; Do You Dip or Chew Tobacco: No; Tobacco Cessation Education Requested by Patient: No Hx Alcohol Use: Yes (usman) Alcohol type: other Hx Substance Use: Yes Last Used Substance: Days (ago) Last Used Substance Other:: daily Preferred Language: [place] Communication Ability: Effective Fish Bait Picker Required: No Beliefs That Will Affect Care: None Current Living Situation: Spouse Other Information That Helps Us Care for You: No Feels Safe at Home: Yes Safety Concerns: Feels Safe At This Time Assistive Devices: Denture - Upper and Denture - Lower Review of Systems Review of Systems: Negative otherwise mentioned in HPI. Physical Exam Physical Exam: GENERAL: Alert and oriented x3. NAD, on 3L NC O2 HEENT: No pallor, no icterus. Pupils equal, round and reactive to light. Oral mucosa moist. NECK: No JVD, no neck masses. HEART: S1 and S2 heard. Regular rate and rhythm. No murmur, no gallop. RESPIRATORY SYSTEM: Normal AP diameter. No accessory muscle use. No wheezing, no crackles. ABDOMEN: Soft, bowel sounds present, nontender, no distention. CENTRAL NERVOUS SYSTEM: No facial droop. Speech is clear. Obeys simple commands. Moves extremities. EXTREMITIES: No edema, no erythema seen. Low back with clean dressing without soakage, WILLIAM drain with moderate serosanguineous collection noted. Distal neurovascular status WNL. Results & Data Vital Signs (Past 12 Hours) Vital Signs Temp Pulse Pulse Resp BP Pulse Ox O2 Del Method 11/09/22 13:29 72 18 154/81 H 100 Nasal Cannula 11/09/22 12:58 37.0 C 75 17 137/79 100 Nasal Cannula 11/09/22 12:20 36.7 C 74 18 154/77 H 100 Nasal Cannula 11/09/22 12:10 81 19 149/74 H 100 Nasal Cannula 11/09/22 12:00 84 16 168/53 H 100 Nasal Cannula 11/09/22 11:50 86 19 168/59 H 100 Nasal Cannula 11/09/22 11:40 86 24 144/97 H 98 Nasal Cannula 11/09/22 11:30 81 27 H 150/83 H 100 Nasal Cannula 11/09/22 11:19 36.2 C L 83 16 122/90 100 Oxymask 11/09/22 08:41 Room Air 11/09/22 08:41 36.7 C 64 16 157/86 H 98 Room Air O2 Flow Rate 11/09/22 13:29 3 11/09/22 12:58 3 11/09/22 12:20 3 11/09/22 12:10 3 11/09/22 12:00 3 11/09/22 11:50 3 11/09/22 11:40 3 11/09/22 11:30 3 11/09/22 11:19 6 11/09/22 08:41 11/09/22 08:41
[2022-11-09] MEDS: METHOCARBAMOL 500 MG TABLET PO SCH ×2 (15:27→20:19)
[2022-11-09] MEDS: HYDROmorphone INJ 1 MG/ML SYRINGE IV PRN ×2 (16:21→20:18)
--- NOTE | 2022-11-09 16:31 | Anesthesiology Progress Note ---
Date of Service November 09, 2022 Anesthesia Post Procedure Vital Signs Vital Signs: Temp Pulse Pulse Resp BP Pulse Ox O2 Del Method 11/09/22 15:30 37.2 C 67 16 134/77 100 Room Air 11/09/22 14:30 37.2 C 79 17 149/74 H 100 Nasal Cannula 11/09/22 13:29 72 18 154/81 H 100 Nasal Cannula 11/09/22 12:58 37.0 C 75 17 137/79 100 Nasal Cannula 11/09/22 12:20 36.7 C 74 18 154/77 H 100 Nasal Cannula 11/09/22 12:10 81 19 149/74 H 100 Nasal Cannula 11/09/22 12:00 84 16 168/53 H 100 Nasal Cannula 11/09/22 11:50 86 19 168/59 H 100 Nasal Cannula 11/09/22 11:40 86 24 144/97 H 98 Nasal Cannula 11/09/22 11:30 81 27 H 150/83 H 100 Nasal Cannula 11/09/22 11:19 36.2 C L 83 16 122/90 100 Oxymask 11/09/22 08:41 Room Air 11/09/22 08:41 36.7 C 64 16 157/86 H 98 Room Air O2 Flow Rate 11/09/22 15:30 11/09/22 14:30 3 11/09/22 13:29 3 11/09/22 12:58 3 11/09/22 12:20 3 11/09/22 12:10 3 11/09/22 12:00 3 11/09/22 11:50 3 11/09/22 11:40 3 11/09/22 11:30 3 11/09/22 11:19 6 11/09/22 08:41 11/09/22 08:41 Pain Intensity Bilateral Lower Back: Pain Intensity: 8 Transfer of Care Handoff Completed per policy Notes Mental Status: alert / awake / arousable Patient Amnestic to Procedure: Yes Nausea / Vomiting: adequately controlled Pain: improving with treatment and see Notes below Airway Patency, RR, SpO2: stable & adequate BP & HR: stable & adequate Hydration State: stable & adequate Anesthetic Complications: no major complications apparent Notes: pain difficult to control with pure opioid agonists, likely due to her chronic bupenorphine. chronic pain has been consulted to help with complex post operative pain management on the floor.
[2022-11-09] MEDS: ceFAZolin 1000MG 1,000 MG/7.5 ML SYR IV SCH (17:28)
[2022-11-09] MEDS: MELATONIN 3 MG TAB PO PRN (20:17)
[2022-11-09] MEDS: busPIRone 5 MG TAB PO SCH (20:19)
[2022-11-09] MEDS: DOCUSATE SODIUM/SENNA 50/8.6MG TAB PO SCH (20:21)
[2022-11-10] MEDS: HYDROmorphone INJ 1 MG/ML SYRINGE IV PRN ×2 (01:53→11:04)
[2022-11-10] MEDS: ceFAZolin 1000MG 1,000 MG/7.5 ML SYR IV SCH (01:53)
[2022-11-10] MEDS: LACTATED RINGER'S 1,000 ML IV SCH (01:53)
[2022-11-10] MEDS: oxyCODONE HCL IR 5 MG TAB (IMMEDIATE RELEASE) PO PRN ×5 (05:25→23:53)
[2022-11-10] MEDS: POLYETHYLENE (MIRALAX) 17 GM PACK PO SCH ×3 (05:32→18:30)
[2022-11-10] MEDS: HYDROmorphone INJ 0.5 MG/0.5 ML SYR IV PRN ×3 (07:46→18:30)
[2022-11-10 07:47] LABS: Basophils # (auto) 0.02 K/uL (0-0.2); Basophils % (auto) 0.2 %; Eosinophils # (auto) 0.04 K/uL (0-0.50); Eosinophils % (auto) 0.4 %; Hematocrit (blood only) 33.8 % (37.0-47.0); Hemoglobin 11.5 g/dl (12.0-16.0); Immature Granulocytes # (auto) 0.04 K/uL (0.01-0.20); Immature Granulocytes % (auto) 0.4 %; Lymphocytes # (auto) 1.34 K/uL (1.2-3.4); Lymphocytes % (auto) 12.6 %; Mean Corpuscular Hemoglobin 32.5 pg (25.0-34.0); Mean Corpuscular Volume 95.5 fL (80.0-100.0); Mean Platelet Volume 8.9 fL (9.4-12.4); Monocytes % (auto) 10.3 %; Neutrophils % (auto) 76.1 %; Platelet Count 287 K/uL (130-400); RDW Coefficient of Variation 12.8 % (11.5-14.5); RDW Standard Deviation 44.9 fL (36.4-46.3); Red Blood Count 3.54 M/uL (4.20-5.40); White Blood Count 10.64 K/ul (4.8-10.8)
[2022-11-10] MEDS: dexAMETHasone 6 MG in SYRINGE 0 ML IV SCH (07:49)
[2022-11-10] MEDS: busPIRone 5 MG TAB PO SCH ×2 (07:50→20:09)
[2022-11-10] MEDS: MULTIVITAMIN TAB PO SCH (07:50)
[2022-11-10] MEDS: DULoxetine HCL 60 MG CAP PO SCH (07:50)
[2022-11-10] MEDS: GABAPENTIN 400 MG CAP PO SCH ×3 (07:51→20:08)
[2022-11-10] MEDS: PANTOprazole 40 MG TAB PO SCH (07:51)
[2022-11-10] MEDS: ATORVASTATIN 20 MG TAB PO SCH (07:51)
[2022-11-10] MEDS: lisinopril 5 MG TAB PO SCH (07:52)
[2022-11-10] MEDS: DULoxetine HCL 30 MG CAP PO SCH (07:52)
[2022-11-10] MEDS: CALCIUM 600MG + VIT D 400 IU TAB PO SCH (07:52)
[2022-11-10] MEDS: METHOCARBAMOL 500 MG TABLET PO SCH ×3 (07:52→20:07)
[2022-11-10] MEDS: ASPIRIN 81 MG ECTAB PO SCH (07:52)
[2022-11-10] MEDS: FLUTICASONE/VILANTEROL 100/25MCG 14 PUFFS/INHALER INH SCH (07:53)
[2022-11-10 08:05] LABS: BUN Creatinine Ratio 14.5 (10-20); Calcium 8.5 mg/dl (8.6-10.3); Creatinine Clr Calc Pharmacy 82.6 ml/min; Est GFR (African American) 115.2 ml/min; Est GFR (Non-African American) 99.4 ml/min; Potassium 3.2 mmol/L (3.5-5.1)
--- NOTE | 2022-11-10 08:41 | Pain Management Consultation ---
Date of Consultation November 10, 2022 Assessment & Plan (1) Status post lumbar surgery: Plan 1. I have resumed her outpatient Suboxone dosing. She may remain on the Suboxone post operatively. She will coordinate with her prescribing physician on when to go back to Sublocade IM monthly. 2. Continue Oxycodone 5-10 mg x 4 hours PRN post operative pain. She is aware that this is a short term medication. 3. Continue chronic regimen of Cymbalta 90 mg daily, gabapentin 400 mg 3 times daily, methocarbamol 500 mg 3 times daily. Thank you for the consultation. History of Present Illness Reason for Consultation: Post op pain Attending Physician: Abraham Weinberg, DO History of Present Illness This is a 57-year-old female that received removal of posterior instrumentation L4-L5 and posterior fusion of L3-L4 by Dr. Weinberg yesterday. Patient has been having difficulty with postoperative pain with ordered oxycodone 10 mg every 4 hours. Pain is ranging from 5-8/10. Patient does have chronic pain complaints to which she receives Sublocade IM monthly. In preparation for surgery she was placed on Suboxone twice daily. Patient states that the pain is located along the low back. No radicular symptoms. No constipation, drowsiness, fevers, chills. Allergies Allergy/AdvReac Type Severity Reaction Status Date / Time ketorolac Allergy Severe throat Verified 11/09/22 08:32 swells and hives ibuprofen Allergy diarrhea Verified 11/09/22 08:32 and upset stomach Home Medications Medication Instructions Recorded Confirmed Type albuterol sulfate 90 mcg/actuation 2 puff inhalation QID PRN 11/02/19 10/20/22 History aerosol inhaler Shortness Of Breath aspirin 81 mg tablet,delayed 81 mg PO QAM 11/02/19 11/09/22 History release (Aspir-) atorvastatin 20 mg tablet (Lipitor) 20 mg PO QAM 11/02/19 11/09/22 History buspirone 10 mg tablet 20 mg PO BID 11/02/19 11/09/22 History calcium carbonate 600 mg-vitamin 1 tab PO QAM 11/02/19 11/09/22 History D3 20 mcg (800 unit) chewable tablet (Caltrate 600 plus D) fluticasone propionate 115 2 puff inhalation BID 11/02/19 11/09/22 History mcg-salmeterol 21 mcg/actuation HFA inhaler (Advair HFA) lisinopril 5 mg tablet 5 mg PO QAM 11/02/19 11/09/22 History methocarbamol 500 mg tablet 500 mg PO TID 11/02/19 11/09/22 History multivitamin 1 tab PO QAM 11/02/19 11/09/22 History omeprazole magnesium 20 mg 20 mg PO QAM 11/02/19 11/09/22 History tablet,delayed release (Prilosec OTC) acetaminophen 650 mg 1,300 mg PO Q6H PRN Pain 03/13/22 11/09/22 History tablet,extended release buprenorphine 300 mg/1.5 mL 300 mg subcut Q30D 03/13/22 11/09/22 History solution,exten.rel.subcutaneous syringe (Sublocade) duloxetine 30 mg capsule,delayed 30 mg PO QAM 03/13/22 11/09/22 History release duloxetine 60 mg capsule,delayed 60 mg PO QAM 03/13/22 11/09/22 History release gabapentin 400 mg tablet 400 mg PO TID 03/13/22 11/09/22 History ipratropium bromide 21 mcg (0.03 2 spray intranasal BID PRN 03/13/22 11/09/22 History %) nasal spray allergies melatonin 10 mg tablet 10 mg PO HS PRN Sleep 03/13/22 11/09/22 History ondansetron 4 mg disintegrating 4 mg PO Q6H PRN Nausea 03/13/22 10/20/22 History tablet pantoprazole 40 mg tablet,delayed 40 mg PO QAM 03/13/22 11/09/22 History release Patient History Medical History Age related osteoporosis Anxiety Chronic neck and back pain Chronic obstructive pulmonary disease daily and prn inh, last rescue inhaler use > 3 months ago Degenerative disc disease Diabetes mellitus, type 2 Diet controlled GERD (gastroesophageal reflux disease) controlled, stable per pt History of COVID-19 08/04/22, home test, not hosp>went to ER because of symptoms; SOB, body aches, decreased appetite, fatigue>resolved. Hx of hepatitis C ~2014, treated and cleared Hyperlipidemia Hypertension controlled, stable per pt Potential difficult airway on pre-intubation assessment s/p cervical spine fusion Rheumatoid arthritis Confirmed with bloodwork, no meds Scoliosis Surgical History Fusion of spine Lumbar x2 History of arthroscopy Left knee scope x6 History of bilateral tubal ligation History of open reduction and internal fixation (ORIF) procedure Right foot pinning Hx of colonoscopy Hx of fusion of cervical spine ACDF C5-7 (01/08/20): C-spine neutral throughout, Elective glidescope #3, atraumatic x1, ETT 7 at [facility]. No issues noted per post-op anesthesia progress note. S/P excision of neuroma Left foot x2 Family History Brother Family history of esophageal cancer Social History Smoking Status: Current every day smoker (-advised) Cigarettes Per Day: 10; Second Hand Exposure: Yes; Do You Dip or Chew Tobacco: No; Tobacco Cessation Education Requested by Patient: No Hx Alcohol Use: Yes (usman) Alcohol type: other Hx Substance Use: Yes Last Used Substance: Days (ago) Last Used Substance Other:: daily Preferred Language: [place] Communication Ability: Effective Production Artist Required: No Beliefs That Will Affect Care: None Current Living Situation: Spouse Other Information That Helps Us Care for You: No Feels Safe at Home: Yes Safety Concerns: Feels Safe At This Time Assistive Devices: Denture - Upper and Denture - Lower Physical Exam Physical Exam: GENERAL: This is a thin 57 year old female in no acute distress. HEAD/FACE: Normocephalic and atraumatic. EYES: No drainage or conjunctival injection. ENT: Nose without bleeding or discharge. Oral mucosa moist. NECK: Full ROM without apparent pain. No swelling or masses noted. RESPIRATORY: Patient with unlabored breathing. No signs of respiratory distress. CHEST/AXILLA: Chest movement symmetrical. No deformities noted. BACK: Bandaged. + WILLIAM drain in place. SKIN: [place], warm and dry. No rash noted. MS/EXTREMITY: No swelling, no deformities. Moving extremities appropriately. NEURO: Alert and appears oriented. Speech is fluent. Cranial Nerves are grossly intact. PSYCH: Alert, pleasant, affect is calm
[2022-11-10] MEDS: BUPRENORPHINE/NALOXONE 8/2 MG TAB SL SCH ×2 (09:20→20:06)
[2022-11-10] MEDS: LORazepam 0.5 MG TAB PO PRN ×2 (09:23→20:06)
[2022-11-10] MEDS ORDERED: POTASSIUM CHLORIDE CRTAB 20 MEQ TABCR PO STA (10:49)
[2022-11-10 11:20] LABS: Magnesium 1.9 mg/dl (1.7-2.4)
--- NOTE | 2022-11-10 11:38 | Orthopedic Progress Note ---
Date of Service November 10, 2022 Assessment & Plan (1) Lumbar stenosis with neurogenic claudication: Plan: At this time we will initiate physical therapy monitor WILLIAM operatively discharge home in the next few days. Admission and Anticipated Discharge Date Admission Date: November 09, 2022 Subjective Back pain controlled leg pain improved Physical Exam Physical Exam: Patient is ambulating the halls per discussion to testing. Results & Data Vital Signs (Past 12 Hours) Vital Signs Temp Pulse Pulse Resp BP Pulse Ox O2 Del Method 11/10/22 07:58 37.2 C 76 18 137/76 94 Room Air 11/10/22 05:22 37.1 C 90 16 135/74 96 Room Air 11/10/22 01:10 36.9 C 88 16 116/74 99 Room Air
[2022-11-10] MEDS: NICOTINE 21 MG/24 HR TDSY TD SCH (14:02)
--- NOTE | 2022-11-10 16:12 | Hospitalist Progress Note ---
Date of Service November 10, 2022 Assessment & Plan (1) Cervical stenosis of spinal canal: Plan POD#1 L3-L4 decompression and fusion, L4-L5 hardware removal by Dr. Weinberg Activity and wound care orders as per ortho Pain control with bowel regimen PT/OT Monitor H/H for acute blood loss anemia and transfuse blood products PRN EBL 50 cc, Hgb stable at 11.5 (13.7) Chronic pain History of chronic pain on Sublocade IM monthly. In preparation for surgery, patient was placed on Suboxone twice daily Evaluated by pain management, outpatient Suboxone dosing resumed; Continue chronic regimen of Cymbalta 90 mg daily, gabapentin 400 mg 3 times daily, methocarbamol 500 mg 3 times daily Continue Oxycodone 5-10 mg x 4 hours PRN post operative pain. She is aware that this is a short term medication. HTN BP controlled, continue lisinopril COPD/ongoing tobacco use Has mild wheezing on exam and cough, chronic per patient and unchanged from baseline Continue home inhalers Low BMI BMI 17.7, underweight Dietitian consulted DVT PROPHYLAXIS TEDs/SCDs as per spine Ortho I spent a total of 30 minutes coordinating, documenting, and providing care for this patient excluding time spent in the performance of separately billed services. This included personally reviewing all current laboratories and imaging studies, medication reconciliation, outpatient chart review, and discussion with specialists. Admission and Anticipated Discharge Date Admission Date: November 09, 2022 Supervising Physician Co-Signing Physician Notes Pt seen an examined by me, care coordinated w/ Amrita WHITE, pls see her note above for further detail. Pt is s/p lumbar spine surgery, seen today ambulating with a walker to the bathroom. She is awake alert oriented answering questions appropriately. However she is somewhat tearful due to pain. She was seen by pain management this morning, Suboxone was restarted. Please see their note for further detail. Lungs are clear to auscultation bilaterally. Heart sounds regular. Abdomen soft nontender nondistended. Patient is thin, BMI 17.7. Postoperative care by Dr. Weinberg. For being underweight, dietitian was consulted. Continue to closely monitor. MD Jessica Subjective Follow-up for medical management, s/p lumbar decompression fusion by Dr. Weinberg. Patient seen and examined. Reports moderate pain this AM. Seen by pain ma nagement, recommendations noted. Denies numbness and tingling to lower extremities. Reports a chronic cough which is unchanged from baseline. Denies chest pain or shortness of breath. No abdominal pain or nausea. Physical Exam Constitutional: WD/WN, vitals as above Respiratory: normal respiratory effort; no respiratory distress Auscultation: + wheezes (Scattered, expiratory) Cardiovascular: Rate/Rhythm: regular rate and regular rhythm Vessels: normal peripheral pulses Extremities: no edema Gastrointestinal (Abdomen): Percussion/Palpation: abdomen soft; abdomen nontender Musculoskeletal: S/p back surgery, strength strong and equal BLE Skin: no rashes, warm and dry Neurologic: no focal motor deficits Psychiatric: A+Ox3, euthymic affect Results & Data Results & Data Vital Signs (Past 12 Hours) Vital Signs Temp Pulse Pulse Resp BP Pulse Ox O2 Del Method 11/10/22 15:12 37.5 C 77 18 109/63 94 Room Air 11/10/22 07:58 37.2 C 76 18 137/76 94 Room Air 11/10/22 05:22 37.1 C 90 16 135/74 96 Room Air Laboratory Results Short CBC 11/10/22 Range/Units 07:06 WBC 10.64 (4.8-10.8) K/ul Hgb 11.5 L (12.0-16.0) g/dl Hct 33.8 L (37.0-47.0) % Plt Count 287 (130-400) K/uL BMP 11/10/22 07:06 Sodium 139 Potassium 3.2 L Chloride 106 Carbon Dioxide 30 BUN 9 Creatinine 0.62 Glucose 115 H Calcium 8.5 L Medications Administered Current Inpatient Medications Acetaminophen (Acetaminophen 500 Mg Tab) 1,000 mg PO Q8H PRN PRN Reason: MILD Pain Scale 1,2,3 & Pre PT Stop: 12/09/22 12:36 Al Hydrox/Mg Hydrox/Simethicone (Aluminum/Magnesium Susp 30 Ml Udc) 30 ml PO Q6H PRN PRN Reason: Dyspepsia Stop: 12/09/22 12:36 Albuterol (Albuterol Hfa 8 Gm Inhaler) 2 puffs INH QID PRN PRN Reason: Shortness Of Breath Stop: 12/09/22 12:36 Aspirin (Aspirin 81 Mg Ectab) 81 mg PO QAM [facility] Stop: 12/10/22 08:59 Last Admin: 04/04/23 07:52 Dose: 81 mg Atorvastatin Calcium (Atorvastatin 20 Mg Tab) 20 mg PO QAM [facility] Stop: 12/10/22 08:59 Last Admin: 11/10/22 07:51 Dose: 20 mg Bisacodyl (Bisacodyl 10 Mg Supp) 10 mg TX DAILY PRN PRN Reason: Constipation Stop: 12/09/22 12:36 Buprenorphine/Naloxone (Buprenorphine/Naloxone 8/2 Mg Tab) 1 tab SL BID [facility] Stop: 12/10/22 08:59 Last Admin: 11/10/22 09:20 Dose: 1 tab Buspirone HCl (Buspirone 5 Mg Tab) 20 mg PO BID [facility] Stop: 12/09/22 20:59 Last Admin: 11/10/22 07:50 Dose: 20 mg Calcium/Vitamin D (Calcium 600mg + Vit D 400 Iu Tab) 1 tab PO QAM [facility] Stop: 12/10/22 08:59 Last Admin: 11/10/22 07:52 Dose: 1 tab Diphenhydramine HCl (Diphenhydramine Capsule 25 Mg Cap) 25 mg PO Q6H PRN PRN Reason: Allergic Rhinitis/Insomnia Stop: 12/09/22 12:36 Duloxetine HCl (D[facility] Hcl 30 Mg Cap) [facility] [place] [facility]: 12/10/22 08:59 Last Admin: 11/10/22 07:52 Dose: 30 mg Duloxetine HCl (Duloxetine Hcl 60 Mg Cap) 60 mg PO QAM [facility] Stop: 12/10/22 08:59 Last Admin: 11/10/22 07:50 Dose: 60 mg Famotidine (Famotidine 20 Mg Tab) 20 mg PO Q12H PRN PRN Reason: Dyspepsia Stop: 12/09/22 12:36 Fluticasone/Vilanterol (Fluticasone/Vilanterol 100/25mcg 14 Puffs/Inhaler) 1 puffs INH DAILY [facility] Stop: 12/10/22 08:59 Last Admin: 11/10/22 07:53 Dose: 1 puffs Gabapentin (Gabapentin 400 Mg Cap) 400 mg PO TID [facility] Stop: 12/09/22 13:59 Last Admin: 11/10/22 14:02 Dose: 400 mg Hydromorphone HCl (Hydromorphone Inj 0.5 Mg/0.5 Ml Syr) 0.5 mg IV Q3H PRN PRN Reason: MODERATE Pain (Scale 4,5,6) & Pre PT Stop: 11/23/22 12:36 Last Admin: 11/10/22 14:02 Dose: 0.5 mg Hydromorphone HCl (Hydromorphone Inj 1 Mg/Ml Syringe) 1 mg IV Q3H PRN PRN Reason: SEVERE Pain (Scale 7,8,9,10) Stop: 11/23/22 12:36 Last Admin: 11/10/22 11:04 Dose: 1 mg Hydroxyzine HCl (Hydroxyzine Hcl 25 Mg Tab) 25 mg PO Q8H PRN PRN Reason: Anxiety Stop: 12/09/22 12:36 Promethazine HCl 12.5 mg/ (Sodium Chloride) 50.5 mls @ 202 mls/hr IV Q6H PRN PRN Reason: Nausea &/or Vomiting Stop: 12/09/22 12:36 Dexamethasone 6 mg/ Syringe 1.5 mls @ 1 mls/min IV DAILY [facility] Stop: 11/12/22 09:02 Last Admin: 11/10/22 07:49 Dose: 1 mls/min Influenza Virus Vaccine Quadrival (Do Not Administer Flu Vaccine) 1 each N/A PRN PRN PRN Reason: Notification Stop: 12/09/22 12:36 Ipratropium [place] (Ipratropium [place] Nasal [place] 0.06% 15ml) 2 sprays AYALA BID PRN PRN Reason: allergies Stop: 12/09/22 13:26 Lisinopril (Lisinopril 5 Mg Tab) [facility] [place] Stop: 12/10/22 08:59 Last Admin: 11/10/22 07:52 Dose: 5 mg Lorazepam (Lorazepam 0.5 Mg Tab) 0.5 mg PO Q8H PRN PRN Reason: Sedation/Anxiety Stop: 12/09/22 12:36 Last Admin: 11/10/22 09:23 Dose: 0.5 mg Lorazepam (Lorazepam 2 Mg/1 Ml Vial) 0.5 mg IV Q8H PRN PRN Reason: Sedation/Anxiety Stop: 12/09/22 12:36 Magnesium Hydroxide (Magnesium Hydroxide Susp 30 Ml Udc) 30 ml PO Q24H PRN PRN Reason: Constipation Stop: 12/09/22 12:36 Melatonin (Melatonin 3 Mg Tab) 9 mg PO HS PRN PRN Reason: Sleep Stop: 12/09/22 13:17 Last Admin: 11/09/22 20:17 Dose: 9 mg Methocarbamol (Methocarbamol 500 Mg Tablet) 500 mg PO TID [facility] Stop: 12/09/22 13:59 Last Admin: 11/10/22 14:02 Dose: 500 mg Metoclopramide HCl (Metoclopramide Hcl Inj 5 Mg/Ml 2 Ml Vial) 10 mg IV Q6H PRN PRN Reason: Nausea &/or Vomiting Stop: 12/09/22 12:36 Miscellaneous (Buprenorphine [Sublocade] 300 Mg/1.5 Ml Solution - Order Awaiting Action) 1 each N/A QS [facility] Stop: 12/09/22 15:59 Last Admin: 11/10/22 15:02 Dose: Not Given Miscellaneous (Remove Nicoderm Patch) 1 each N/A DAILY@0859 [facility] Stop: 12/11/22 08:58 Multivitamins (Multivitamin Tab) 1 tab PO QAM [facility] Stop: 12/10/22 08:59 Last Admin: 11/10/22 07:50 Dose: 1 tab Naloxone HCl (Naloxone Hcl 0.4 Mg/1 Ml Vial/Carp) 0.1 mg IV Q5M PRN PRN Reason: Oversedation/Resp depression Stop: 12/09/22 12:36 Nicotine (Nicotine 21 Mg/24 Hr Tdsy) 21 mg TD QAM [facility] Stop: 12/10/22 12:59 Last Admin: 11/10/22 14:02 Dose: 21 mg Ondansetron HCl (Ondansetron Inj 2 Mg/Ml 2 Ml Vial) 4 mg IV Q6H PRN PRN Reason: Nausea &/or Vomiting Stop: 12/09/22 12:36 Ondansetron HCl (Ondansetron 4 Mg Od Tab) 4 mg PO Q6H PRN PRN Reason: Nausea Stop: 12/09/22 12:36 Oxycodone HCl (Oxycodone Hcl Ir 5 Mg Tab (Immediate Release)) 5 - 10 mg PO Q4H PRN PRN Reason: Pain & Pre PT Stop: 11/23/22 12:36 Last Admin: 04/04/23 11:59 Dose: 10 mg Pantoprazole Sodium (Pantoprazole 40 Mg Tab) 40 mg PO QAM [facility] Stop: 12/10/22 08:59 Last Admin: 11/10/22 07:51 Dose: 40 mg Pneumococcal Polyvalent Vaccine (Do Not Administer Pneumococcal Vaccine) 1 each N/A PRN PRN PRN Reason: Notification Stop: 12/09/22 12:36 Polyethylene Glycol (Polyethylene (Miralax) 17 Gm Pack) 17 gm PO Q6 [facility] Stop: 12/10/22 05:59 Last Admin: 11/10/22 12:04 Dose: Not Given Senna/Docusate Sodium (Docusate Sodium/Senna 50/8.6mg Tab) 2 tab PO HS [facility] Stop: 12/09/22 20:59 Last Admin: 11/09/22 20:21 Dose: 2 tab Sodium Biphosphate/Sodium Phosphate (Sod Phosphate/Sod Biphosphate Enema 132 Ml Btl) 132 ml TX ONE PRN PRN Reason: Constipation Stop: 12/09/22 12:36 Tramadol HCl (Tramadol Hcl 50 Mg Tablet) 50 - 100 mg PO Q4H PRN PRN Reason: Moderate-Severe pain & Pre PT Stop: 12/09/22 12:36
[2022-11-10] MEDS: MELATONIN 3 MG TAB PO PRN (20:06)
[2022-11-10] MEDS: DOCUSATE SODIUM/SENNA 50/8.6MG TAB PO SCH (20:09)
[2022-11-11] MEDS: LORazepam 0.5 MG TAB PO PRN ×2 (03:43→11:44)
[2022-11-11] MEDS: HYDROmorphone INJ 1 MG/ML SYRINGE IV PRN ×2 (03:44→07:15)
[2022-11-11] MEDS: oxyCODONE HCL IR 5 MG TAB (IMMEDIATE RELEASE) PO PRN ×3 (05:47→16:02)
[2022-11-11 07:38] LABS: Hematocrit (blood only) 35.3 % (37.0-47.0); Hemoglobin 12.1 g/dl (12.0-16.0); Mean Corpuscular Hemoglobin 32.1 pg (25.0-34.0); Mean Corpuscular Hgb Conc 34.3 g/dL (32.0-36.0); Mean Corpuscular Volume 93.6 fL (80.0-100.0); Platelet Count 295 K/uL (130-400); RDW Coefficient of Variation 12.6 % (11.5-14.5); RDW Standard Deviation 43.3 fL (36.4-46.3); Red Blood Count 3.77 M/uL (4.20-5.40); White Blood Count 9.23 K/ul (4.8-10.8)
[2022-11-11 08:14] LABS: BUN Creatinine Ratio 16.4 (10-20); Creatinine Clr Calc Pharmacy 76.4 ml/min; Est GFR (African American) 112.3 ml/min; Est GFR (Non-African American) 96.9 ml/min; Potassium 3.9 mmol/L (3.5-5.1)
[2022-11-11] MEDS: GABAPENTIN 400 MG CAP PO SCH ×2 (09:07→13:35)
[2022-11-11] MEDS: busPIRone 5 MG TAB PO SCH (09:07)
[2022-11-11] MEDS: ATORVASTATIN 20 MG TAB PO SCH (09:07)
[2022-11-11] MEDS: DULoxetine HCL 30 MG CAP PO SCH (09:08)
[2022-11-11] MEDS: CALCIUM 600MG + VIT D 400 IU TAB PO SCH (09:08)
[2022-11-11] MEDS: lisinopril 5 MG TAB PO SCH (09:08)
[2022-11-11] MEDS: MULTIVITAMIN TAB PO SCH (09:08)
[2022-11-11] MEDS: PANTOprazole 40 MG TAB PO SCH (09:08)
[2022-11-11] MEDS: DULoxetine HCL 60 MG CAP PO SCH (09:08)
[2022-11-11] MEDS: ASPIRIN 81 MG ECTAB PO SCH (09:08)
[2022-11-11] MEDS: FLUTICASONE/VILANTEROL 100/25MCG 14 PUFFS/INHALER INH SCH (09:08)
[2022-11-11] MEDS: dexAMETHasone 6 MG in SYRINGE 0 ML IV SCH (09:09)
[2022-11-11] MEDS: METHOCARBAMOL 500 MG TABLET PO SCH ×2 (09:10→13:35)
[2022-11-11] MEDS: BUPRENORPHINE/NALOXONE 8/2 MG TAB SL SCH (09:12)
[2022-11-11] MEDS: NICOTINE 21 MG/24 HR TDSY TD SCH (09:21)
--- NOTE | 2022-11-11 12:16 | Discharge Summary ---
Date of Service November 11, 2022 Admission HPI Per Admitting Provider This is a 49-year-old female who presents with chronic persistent back and leg pain after failing course of nonoperative care she is here for surgical intervention. Principal Diagnosis Lumbar spinal stenosis with neurogenic claudication Discharge Data Allergies Allergy/AdvReac Type Severity Reaction Status Date / Time ketorolac Allergy Severe throat Verified 11/09/22 08:32 swells and hives ibuprofen Allergy diarrhea Verified 11/09/22 08:32 and upset stomach Consultations 11/09/22 12:13 Consult Pain Management Stat 11/09/22 12:37 Consult Hospitalist Routine Procedures Performed Operation Date: 11/09/22 09:45 Actual Procedures p L3-L4 Decompression and Fusion, L4-L5 Hardware Removal, Spinal Cord Monitoring(Not Applicable) - Abraham Weinberg DO Ordered Studies 11/09/22 09:45 [place] lumbar spine 2-3V Routine Hospital Course (1) Lumbar stenosis with neurogenic claudication: Patient underwent lumbar decompression fusion tolerated this well was taken to orthopedic floor postoperatively. Postop day 1 she was up and ambulating progressed to postop day #2. WILLIAM drain decreasing completely. Excellent strength testing. Separately discharged home. Discharge orders and instr uctions found in the chart for further review. Total Time Total Time Spent Total Time Spent (In Minutes): 20 minutes Discharge Plan Discharge Items Patient Disposition: Home - Self-Care Reason For Visit: Spinal Stenosis, Lumbar Region without Neurogenic Discharge Diagnosis: Lumbar spinal stenosis with neurogenic claudication Activity: As commented below Non-emergency contact: Primary Care Provider Call non-emergency contact if: you have any medication questions Follow-up/Referrals: PCP,NO [Physician] - Diet: Regular Addtl Attending Provider Instructions: ACTIVITY RECOMMENDATIONS: SELF CARE INSTRUCTIONS AFTER THORACIC/LUMBAR FUSIONS 1. You may walk to your tolerance. It is good exercise for your legs and back. Expect some back and intermittent leg aches and pains. 2. You may perform "counter-top" level activities (make a sandwich, john with a project, etc.). 3. No bending or lifting of more than 10 pounds or back twisting of any nature (roll like a log when turning in bed). 4. You may ride in a car for 20-30 minutes at a time. No driving until after your first visit with your doctor. 5. Frequent changes of position and restricting sitting to 30 minutes at a time will help limit the amount of back spasms and stiffness you may experience. 6. You may discontinue the use of ambulatory aids (cane, crutches, etc.) once your strength and confidence allow. 7. You may network development coordinator the shower and let water strike your incision when you arrive home at least once daily. Do not take a tub bath, sit in a hot tub or go into a swimming pool until after your first recheck in the office. SPECIAL CARE INSTRUCTIONS: VERY IMPORTANT TO READ AND REVIEW A. Your surgical incision has been closed with a cosmetic suture under the skin that will dissolve in about 6 weeks. In 14 days, you can use a pair of clean scissors and cut the suture that is left outside of the skin at the ends of your incision. 1. The small skin tapes can be removed 7 days after surgery if they have not fallen off by that point. 2. You may keep the wound open to air as much as possible to promote healing after post-op day number 5 unless told otherwise by your doctor. 3. If you think the wound looks like it is becoming infected (redness or worsening drainage) and/or you are experiencing fever, chill or worsening back pain and muscle spasms, contact the office so that we may evaluate you as soon as possible. B. Complications are uncommon, but please contact us if you have any signs or symptoms of: 1. wound infection (fever higher than 102.5 degrees F, redness, separation of wound, drainage, or increasing pain from the incision) 2. blood clots in legs (pain, swelling, redness and warmth in legs) 3. urinary tract infection (fever higher than 102.5 degrees F, burning upon urination or increased frequency of urination) 4. nerve problems (inability to walk on your toes or heels, numbness, loss of bowel or bladder control) 5. any other symptoms that concern you C. Please call the office at if you have any concerns or questions about your operation or recovery. D. No smoking! Smoking drastically decreases the chance of a solid fusion. E. Do not take any anti-inflammatory medications (Indocin, Advil, Motrin, Aspirin, Naprosyn, etc.) as these may inhibit the chance of a solid fusion. Tylenol is okay to take for pain. MANAGING PAIN AFTER SPINAL SURGERY 1. Narcotic medication is intended for short-term use and will be provided for surgical pain. Surgical pain usually lasts for a period of 4-6 weeks. Narcotic medication includes Percocet, Vicodin, Darvocet, Tylenol #3 or Lortab. 2. Longer-term pain is more appropriately treated with non-narcotic medication such as Tylenol ES. 3. Muscle spasm is not appropriately treated with narcotics. Muscle relaxers such as Soma, Flexeril or Skelaxin can be used along with Tylenol ES. 4. Remember that we all live with some "aches and pains". This is not unusual or uncommon after an injury or as we get older. a. Back pain is expected and may include muscle spasms for 4 to 6 weeks after surgery. The pain should gradually improve. If the pain worsens for no apparent reason, please contact the office. b. Intermittent leg pain may also be experienced and should not be concerned about unless it worsens for no apparent reason. If so, please contact the office. 5. We will provide appropriate medication within the normal guidelines of their prescribed use. We will also be very cautious and aware of potential abuse and extended duration of patients' medication needs. a. Pain medications are for your comfort and to assist with sleep and rest so that the tissue can heal. They are not provided in order to return to normal activity and should not be used through the day. To do so or worsening pain at night can result from ongoing tissue damage and development of tolerance to the prescribed medicine. 6. Please allow 2-3 days to process refills. Prescriptions will not be mailed but must be picked up at the office. FOLLOW UP VISIT: Keep your scheduled follow-up appointment. Any questions, please call the office at . Pending Studies at Discharge: No Stand-Alone Forms: [employer] Smoking Cessation Medications and DC Order Prescriptions: New oxycodone-acetaminophen [Percocet] 5-325 mg tablet 2 tab PO Q6 Qty: 30 0RF lorazepam [Ativan] 1 mg tablet 1 mg PO HS PRN (Reason: sleep) Qty: 10 0RF Continued methocarbamol 500 mg Tablet 500 mg PO TID buspirone 10 mg Tablet 20 mg PO BID omeprazole magnesium [Prilosec OTC] 20 mg Tablet,Delayed Release (Dr/Ec) 20 mg PO QAM multivitamin Tablet 1 tab PO QAM atorvastatin [Lipitor] 20 mg Tablet 20 mg PO QAM aspirin [Aspir-81] 81 mg Tablet,Delayed Release (Dr/Ec) 81 mg PO QAM lisinopril 5 mg Tablet 5 mg PO QAM albuterol sulfate 90 mcg/actuation Hfa Aerosol Inhaler 2 puff INHALATION QID PRN (Reason: Shortness Of Breath) Caltrate 600 plus D 600 mg (1,500 mg)-800 unit Tablet,Chewable 1 tab PO QAM Advair HFA 115-21 mcg/actuation Hfa Aerosol Inhaler 2 puff INHALATION BID acetaminophen 650 mg Tablet Extended Release 1,300 mg PO Q6H PRN (Reason: Pain) pantoprazole 40 mg Tablet,Delayed Release (Dr/Ec) 40 mg PO QAM ondansetron 4 mg Tablet,Disintegrating 4 mg PO Q6H PRN (Reason: Nausea) ipratropium bromide 21 mcg (0.03 %) [place],Non-Aerosol 2 spray INTRANASAL BID PRN (Reason: allergies) Rx Instructions: administer into each nostril duloxetine 30 mg Capsule,Delayed Release(Dr/Ec) 30 mg PO QAM duloxetine 60 mg Capsule,Delayed Release(Dr/Ec) 60 mg PO QAM gabapentin 400 mg Tablet 400 mg PO TID melatonin 10 mg Tablet 10 mg PO HS PRN (Reason: Sleep) Sublocade 300 mg/1.5 mL Solution, Extended Rel Syringe 300 mg SUBCUT Q30D Rx Instructions: next injection 10/26/22 Discharge Orders: Discharge Order (Routine); Ordered 11/11/22 Ordered By: Abraham Weinberg Admission Data Admit Date/Time: 11/09/22 11:06 Attending Provider: Abraham Weinberg Admit Provider: Abraham Weinberg Primary Care Provider: Anthony Salas Other Providers: Michelle Serra ; Angie Montesinos ; Ish Egan
[2022-11-11] MEDS: HYDROmorphone INJ 0.5 MG/0.5 ML SYR IV PRN (13:36)
--- NOTE | 2022-11-11 16:28 | Hospitalist Progress Note ---
Date of Service November 11, 2022 Assessment & Plan (1) Cervical stenosis of spinal canal: Plan POD#2 L3-L4 decompression and fusion, L4-L5 hardware removal by Dr. Weinberg Activity and wound care orders as per ortho Pain control with bowel regimen PT/OT Monitor H/H for acute blood loss anemia and transfuse blood products PRN EBL 50 cc, WILLIAM output 287 cc, Hgb stable at 12.1 (pre op 13.7) Chronic pain History of chronic pain on Sublocade IM monthly. In preparation for surgery, patient was placed on Suboxone twice daily Evaluated by pain management, outpatient Suboxone dosing resumed; Continue chronic regimen of Cymbalta 90 mg daily, gabapentin 400 mg 3 times daily, methocarbamol 500 mg 3 times daily Discussed discharge plan with patient's sign painter apprentice, Dr. Shabazz. He recommends for the patient to continue on Suboxone twice daily until her follow-up with him on 11/23. He will send a refill to the pharmacy. Dr. Shabazz aware the patient has been discharged on Percocet and lorazepam as per spine Ortho. HTN BP controlled, continue lisinopril COPD/ongoing tobacco use Chronic cough unchanged from baseline, no signs of acute exacerbation Continue home inhalers Low BMI BMI 17.7, underweight DVT PROPHYLAXIS TEDs/SCDs as per spine Ortho Admission and Anticipated Discharge Date Admission Date: November 09, 2022 Supervising Physician Co-Signing Physician Notes Patient is seen and examined at bedside. Back pain at surgical site is controlled with pain medications. Patient denies any chest pain, dyspnea, dizziness, nausea, abdominal pain. I personally reviewed blood work, imaging st udies. On exam patient is thin, frail, no apparent distress, normocephalic atraumatic, EOMI, normal breath sounds, clear to auscultation, S1-S2, no murmur, no pedal edema, abdomen soft, nontender, normal bowel sounds,back--surgical site in dressing, alert, awake, oriented, grossly no focal deficits. S/P Lumbar spinal stenosis with neurogenic claudication S/P surgery by on 11/09/22. Follows with pain management for chronic pain. Continue home medications for hypertension, COPD. I personally reviewed the record. Patient is interviewed and examined at bedside. Patient's care is coordinated with Kinga aCrter NP. Please refer to the documentation above for details of patient's presentation and for discussion of other issues. Subjective Follow-up for medical management, s/p lumbar decompression fusion by Dr. Weinberg. Patient seen and examined. Plan for discharge today. Patient reports pain is controlled with current regimen. No chest pain or shortness of breath. Denies abdominal pain or nausea. Urinating and + BM without difficulty. Review of Systems Review of Systems: All systems reviewed & are unremarkable except as noted in Subjective Physical Exam Constitutional: WD/WN, vitals as above Respiratory: normal respiratory effort, lungs clear to auscultation Auscultation: no wheezes Cardiovascular: Rate/Rhythm: regular rate and regular rhythm Vessels: normal peripheral pulses Extremities: no edema Gastrointestinal (Abdomen): Percussion/Palpation: abdomen soft; abdomen nontender Musculoskeletal: S/p back surgery, strength strong and equal BLE Skin: no rashes, warm and dry Neurologic: no focal motor deficits Psychiatric: A+Ox3, euthymic affect Results & Data Results & Data Vital Signs (Past 12 Hours) Vital Signs Temp Pulse Pulse Resp BP BP Pulse Ox 11/11/22 16:04 37.4 C 80 74 18 106/68 128/75 96 11/11/22 15:22 37.4 C 80 18 106/68 96 11/11/22 07:08 36.9 C 74 18 128/75 95 O2 Del Method 11/11/22 16:04 11/11/22 15:22 Room Air 11/11/22 07:08 Room Air Laboratory Results Short CBC 11/11/22 Range/Units 06:55 WBC 9.23 (4.8-10.8) K/ul Hgb 12.1 (12.0-16.0) g/dl Hct 35.3 L (37.0-47.0) % Plt Count 295 (130-400) K/uL BMP 11/11/22 06:55 Sodium 139 Potassium 3.9 D Chloride 104 Carbon Dioxide 30 BUN 11 Creatinine 0.67 Glucose 107 H Calcium 9.0
== END 2022-11-11 16:51 | disposition home or self-care (01) | DRG 454 ==
LOC: ASU 07:31 → 3N 11:06